=== PATIENT | female | born 2005 | race Two or more races ===

== ENCOUNTER → 2024-07-20 | Outpatient (CLI) | payer MEDICAID, SELFPAY ==
--- NOTE | 2024-07-20 13:28 | XR_ITS ---
Examination: Foot, right, 3 views Technique: AP, oblique, lateral views foot, 3 views Date and time of exam: July 20, 2024 1339 hours INDICATIONS: Patient fell last week with injury to the foot, foot pain FINDINGS: Adequate bone density. No acute fracture No dislocation No foreign body IMPRESSION: No acute fracture
--- NOTE | 2024-07-20 13:28 | XR_ITS ---
EXAMINATION: Ankle, right 3 views . Technique: Ankle AP, oblique, lateral 3 views Date and time of exam: July 20, 2024 at 1339 hours INDICATIONS: Patient fell last week with injury to the ankle, ankle pain. FINDINGS: No ankle fracture or dislocation No opaque foreign body IMPRESSION: No ankle fracture or dislocation
== END | disposition home or self-care (01) ==
PROVIDERS: PCP Family Medicine; Referring Provider Obstetrics & Gynecology; Visit Provider Obstetrics & Gynecology
DX: S99.911A Unspecified injury of right ankle, initial encounter (principal); S99.921A Unspecified injury of right foot, initial encounter; W19.XXXA Unspecified fall, initial encounter
CPT/HCPCS: 73610; 73630

== ENCOUNTER 2024-08-11 17:14 | Emergency (ER) | payer MEDICAID, SELFPAY ==
[2024-08-11 17:15] VITALS: BMI 38.9
[2024-08-11 17:37] VITALS: BP 125/83; PULSE 79; RESP 18; TEMP 37; O2SAT 97
--- NOTE | 2024-08-11 17:44 | PD.EDRME ---
Rapid Medical Screening Exam RME Arrival date/time: 08/11/24 17:14 19-year-old female with no known medical history presents to the emergency room with a chief complaint of bilateral pelvic pain and back pain that began after a fall that occurred today. Patient states she is currently and states her last menstrual period was June 30, 2023. I have greeted and performed a focused initial assessment of this patient. A comprehensive ED assessment and evaluation of the patient, analysis of all test results, and completion of the medical decision making process will be conducted by additional ED providers. Chief Complaint: Back Pain/Injury Vital signs: Vital Signs Temperature 98.6 F 08/11/24 17:37 Pulse Rate 79 08/11/24 17:37 Respiratory Rate 18 08/11/24 17:37 Blood Pressure 125/83 08/11/24 17:37 Pulse Oximetry (%) 97 08/11/24 17:37 Oxygen Delivery Method Room Air 08/11/24 17:37 Vital signs reviewed by provider: Yes
[2024-08-11 18:18] LABS: Basophils % (Auto) 0 % (0-2.5); Eosinophils # (Auto) 0.1 Thou/mm3 (0.0-0.5); Eosinophils % (Auto) 2 % (0-10); Hematocrit 37.7 % (36.0-46.0); Immature Granulocytes % (Auto) 1 % (0-0); Immature Granulocytes Auto 0.03 Thou/mm3 (0.00-0.00); Lymphocytes % (Auto) 34 % (10-50); Mean Corpuscular HGB Conc 34.5 g/dl (31.0-37.0); Mean Corpuscular Hemoglobin 30.1 pg (25.0-35.0); Mean Corpuscular Volume 87 fL (80-100); Monocytes # (Auto) 0.4 Thou/mm3 (0.0-0.8); Monocytes % (Auto) 7 % (0-12); Neutrophils # (Auto) 3.3 Thou/mm3 (1.8-7.7); Neutrophils % (Auto) 57 % (37-80); Nucleated Red Blood Cell % 0 /100 WBC (0); Platelet Count 218 Thou/mm3 (140-440); RDW Standard Deviation 42.4 fL (36.4-46.3); Red Blood Count 4.32 Miln/mm3 (4.00-5.20); White Blood Count 5.9 Thou/mm3 (3.6-11.0)
--- NOTE | 2024-08-11 18:26 | XR_ITS ---
Examination: OB Transvaginal ultrasound of the pelvis, complete Technique: Transvaginal sonographic images pelvis performed using uli scale imaging Exam date and time: August 11, 20242025 hrs. Indications: Patient fell today with pelvic pain Findings: Uterus 8.5 x 4.3 x 5.8 cm Intrauterine gestational sac 0.4 cm corresponds to 5 weeks 1 day gestational age No pole or cardiac activity Right ovary 3.8 cm arterial flow 23 mm cyst Left ovary obscured by bowel gas Impression: Early intrauterine gestational sac No pole or cardiac activity Recommend short-term follow-up transvaginal pelvic sonography to confirm viability.
--- NOTE | 2024-08-11 18:26 | PD.EDBACK ---
ED Back Injury Pain RME/HPI General Chief Complaint: Back Pain/Injury Stated Complaint: LOWER BACK PAIN S/P FALL (+) Time Seen by Provider: 08/11/24 18:20 Arrival date/time: 08/11/24 17:14 19F at approximately 2-6 weeks and with no significant PMH presents to ED with lower back/hip/pelvic pain and trip and fall while walking backwards today. Patient denies hitting her head and vaginal bleeding. Limitations: no limitations RME / HPI RME / HPI Narrative: 08/11/24 17:14 19-year-old female with no known medical history presents to the emergency room with a chief complaint of bilateral pelvic pain and back pain that began after a fall that occurred today. Patient states she is currently and states her last menstrual period was June 30, 2023. I have greeted and performed a focused initial assessment of this patient. A comprehensive ED assessment and evaluation of the patient, analysis of all test results, and completion of the medical decision making process will be conducted by additional ED providers. Related Data Previous Rx's ?Medication ?Instructions ?Recorded cyclobenzaprine 5 mg tablet 5 mg PO Q8H #14 tabs 08/26/23 ibuprofen 800 mg tablet (IBU) 800 mg PO Q8H #20 tabs 08/26/23 ondansetron HCl 4 mg tablet 4 mg PO Q8H PRN nausea and 08/26/23 vomiting #7 tabs Allergies Allergy/AdvReac Type Severity Reaction Status Date / Time No Known Allergies Allergy Verified 08/26/23 12:26 Review of Systems Review of Systems Systems Reviewed: All systems reviewed, normal except as documented Constitutional Constitutional: Reports system reviewed and no additional complaints, except as documented, Denies fever(s) and Denies headache(s) ENT Ears, Nose, Mouth, and Throat: Denies disequilibrium and Denies headache(s) Cardiovascular Cardiovascular: Reports system reviewed and no additional complaints, except as documented, Denies chest pain and Denies dyspnea Respiratory Respiratory: Reports system reviewed and no additional complaints, except as documented, Denies cough and Denies dyspnea Gastrointestinal Gastrointestinal: Reports system reviewed and no additional complaints, except as documented, Denies abdominal pain, Denies nausea and Denies vomiting Musculoskeletal Musculoskeletal: Reports as per HPI and Reports back pain Neurologic Neurologic: Reports system reviewed and no additional complaints, except as documented, Denies confusion, Denies disequilibrium and Denies headache(s) Psychiatric Psychiatric: Denies confusion Past Medical History Social History SMOKING STATUS: Never smoker ED Exam General Limitations: Present no limitations General appearance: Present alert and in no apparent distress Head Head exam: Present atraumatic Eye Eye exam: Present normal appearance, PERRL and EOMI ENT ENT exam: Present normal exam, normal oropharynx and mucous membranes moist Neck Neck exam: Present normal inspection, full ROM and trachea midline Chest Chest inspection: Present normal inspection and symmetric chest wall rise Respiratory Respiratory exam: Present normal lung sounds bilaterally Cardiovascular Cardiovascular exam: Present regular rate, normal rhythm and normal heart sounds Abdominal Exam Abdominal exam: Present soft and normal bowel sounds Extremities Exam Extremities exam: Present normal inspection and full ROM Back Exam Back exam: Present normal inspection and full ROM Neurological Exam Neurological exam: Present alert, oriented X3 and CN II-XII intact Psychiatric Psychiatric exam: Present normal affect and normal mood Skin Skin exam: Present warm, dry, intact and normal color Course Quality Measures none Orders Category Date Time Status US OB transvaginal Stat Exams 08/11/24 18:26 Completed ABO/RH Type Stat Lab 08/11/24 18:00 Completed Beta HCG,Quantitative Stat Lab 08/11/24 18:00 Completed CBC Stat Lab 08/11/24 18:00 Completed CMP [Comprehensive Metabolic Panel] Stat Lab 08/11/24 18:00 Completed UA [Urinalysis] Stat Lab 08/11/24 19:40 Completed Vital Signs Vital signs: Vital Signs Temperature 98.6 F 08/11/24 17:37 Pulse Rate 79 08/11/24 17:37 Respiratory Rate 18 08/11/24 17:37 Blood Pressure 125/83 08/11/24 17:37 Pulse Oximetry (%) 97 08/11/24 17:37 Oxygen Delivery Method Room Air 08/11/24 17:37 O2 at 97% on RA and WNLs Back Pain / Injury MDM Narrative MDM Narrative:: 19F at approximately 2-6 weeks and with no significant PMH presents to ED with lower back/hip/pelvic pain and trip and fall while walking backwards today. Patient denies hitting her head and vaginal bleeding. Physical exam reveals no pelvic back tenderness. ROM intact. Gait normal. Patient is afebrile, calm, and alert. US IUP but no FHR, possibly due to early gestation. Beta HCG WNLs. Licensed Pharmacist given. Patient data External records reviewed:: [facility] previous records Clinical information provided by:: patient Social determinants that could affect healthcare access:: none Patient has the following chronic illnesses:: none How is presenting disease/condition affected by chronic disease/condition?: no chronic disease Evaluation data The following diagnostics were reviewed and interpreted by me:: lab results and radiology exam(s) Lab and/or radiology exams considered but not ordered:: ordered Interpretation Summary: above Medications / Prescriptions Medications or Prescriptions considered but not ordered:: not ordered Medication administrations:: n/a Consultations Consultation(s) initiated? (list below): No Diagnosis Differential diagnosis back pain/injury: lumbar radiculopathy, sciatica, strain of lumbar region, renal colic, pyelonephritis, thoracic back pain, AAA, discitis and other (pelvic pain, back contusion, miscarriage, ) Most likely diagnosis given after review of the tests above:: currently Admission Indicated Admission indicated?: not indicated Admission Request Was there a request for admission?: No Disposition Plan Disposition Plan: Discharge Discharge Attestation Discharge Attestation: The patient and all family members were given an opportunity to ask questions and understood the discharge instructions. Discharge instructions specifically effects, indications for sooner follow up or return to the emergency department, and the expected course of current diagnosis. Patient condition: Stable Discharge Plan Plan Patient Disposition: HOME (Self Care) Disposition Comment: Stable Prescriptions/Referrals Prescriptions/Med Rec: No Action ondansetron HCl 4 mg tablet 4 mg PO Q8H PRN (Reason: nausea and vomiting) Qty: 7 0RF ibuprofen [IBU] 800 mg tablet 800 mg PO Q8H Qty: 20 0RF cyclobenzaprine 5 mg tablet 5 mg PO Q8H Qty: 14 0RF Referrals: Clarissa Sams PA-C [Primary Care Provider] - In 1 week Problem List Clinical Impression: Currently Patient/Caregiver Discharge Instructions Additional Instructions: Please follow-up with PCP/OBGYN within 24-48 hours and return immediately if symptoms worsen. Can repeat HCG in 48-72 hours to see trend. Print Language: Australian Stand Alone Forms: Work/School Release, Patient Portal Info Letter ANNY Supervising Physician ANNY Supervising Physician: Dr. Rivera
[2024-08-11 18:47] LABS: Alanine Aminotransferase 14 U/L (10-49); Albumin, Serum 4.6 gm/dL (3.5-5.0); Albumin/Globulin Ratio 1.6 (1.2-2.2); Alkaline Phosphatase 75 U/L (46-116); Anion Gap 7 (7-16); Aspartate Amino Transferase 20 U/L (0-34); BUN/Creatinine Ratio 13 Ratio (12-20); Bilirubin,Total 0.3 mg/dL (0.3-1.2); Blood Urea Nitrogen 9 mg/dL (9-23); Calcium 9.5 mg/dL (8.3-10.6); Calcium (Corrected) 9.5 mg/dL (8.5-10.1); Carbon Dioxide 25.7 mMol/L (20.0-31.0); Chloride 107 mMol/L (98-107); Creatinine (Component) 0.7 mg/dL (0.6-1.3); Estimated Creatinine Clearance 143.2 mL/min (>60); Globulin 2.8 gm/dL (2.3-3.5); Glucose 88 mg/dL (74-106); Osmolality,Calculated 277 (275-295); Potassium 3.9 mMol/L (3.4-5.1); Sodium 140 mMol/L (136-145); Total Protein 7.4 gm/dL (5.7-8.2); eGFR > 60 See Note
[2024-08-11 18:57] LABS: Beta HCG,Quantitative 1179 mIU/mL (<5.0)
[2024-08-11 19:48] LABS: Collection Type, Urine Clean Catch
[2024-08-11 19:58] LABS: Bilirubin,Urine Negative (Negative); Blood,Urine Negative (Negative); Clarity,Urine Clear (Clear/Hazy); Color,Urine Colorless (Lt Yel-Yel); Glucose, Urine Negative (Negative); Ketones,Urine 1+ (Negative); Leukocyte Esterase,Urine Negative (Negative); Nitrite,Urine Negative (Negative); PH,Urine 6.5 (5.0-7.0); Protein,Urine Negative (Neg - Trace); RBC,Urine 1 /hpf (0-3); Specific Gravity,Urine 1.005 (1.001-1.035); Squamous Epithelial Cell,Urine < 1 /hpf (0-5); Urobilinogen,Urine Negative mg/dL (0.0-1.0); WBC,Urine 1 /hpf (0-5)
== END 2024-08-11 23:23 | disposition home or self-care (01) ==
PROVIDERS: Nurse Practitioner Family; Emergency Provider Emergency Medicine; PCP Specialist
DX: O9A.211 Injury, poisoning and certain other consequences of external causes complicating pregnancy, first trimester (principal); S39.93XA Unspecified injury of pelvis, initial encounter; O21.9 Vomiting of pregnancy, unspecified; W01.0XXA Fall on same level from slipping, tripping and stumbling without subsequent striking against object, initial encounter; Y93.01 Activity, walking, marching and hiking; Z3A.01 Less than 8 weeks gestation of pregnancy
CPT/HCPCS: 36415; 76817; 80053; 81001; 84702; 85025; 86900; 86901; 99284

== ENCOUNTER 2025-02-02 09:33 | Outpatient (AMB) | payer MEDICAID, SELFPAY ==
[2025-02-02 09:46] VITALS: BP 119/77; PULSE 96; RESP 17; TEMP 36.3; O2SAT 96; BMI 40.1
--- NOTE | 2025-02-02 09:46 | AMB.OBINITIA ---
Vital Signs 02/02/25 09:46 Height 1.6 m Height Method Stated Weight 102.682 kg Weight Measurement Method Standing Scale BMI 40.1 BP 119/77 Blood Pressure Source Automatic Cuff Blood Pressure Location Right Upper Arm Position Sitting Respiration 17 Pulse 96 Pulse Source Monitor Temp 97.4 F Temp Source Temporal Artery Scan Pulse Oximetry (%) 96 Oxygen Delivery Method Room Air Allergies/Home Meds Allergies & Medications Allergies No Known Allergies Allergy (Verified 02/02/25 09:47) Medication Reconciliation aspirin 81 mg tablet,delayed release (Adult Aspirin Regimen) 81 mg PO QDAY #60 tabs 02/02/25 [Rx] Intake Visit Data Collection New Patient or Established: Established Patient (seen at [facility] within 3 years) Reason for Visit:: OBI Seen by Clinical Staff ONLY (RN/MA): No Marketing Performance Analyst Required: No Do You Feel Safe at Home: Yes Authorities Contacted: N/A PCP or OBGYN visit in last 3 months: No Hx Now: Yes Are you currently on any form of Control: No Pain Present Currently: No Pain Scale Used: [place]rales-Farley/Numerical Pain scale:: 0 Smoking Status Smoking Status: Never smoker Questionnaires Covid-19 Vaccine Questionnaire Has patient been vacinated for Covid-19 Have you been vacinated for Covid-19: Yes PHQ-9 PHQ-2 Over the last 2 weeks, how often have you been bothered by any of the following problems? 1. Little interest or pleasure in doing things: not at all 2. Feeling down, depressed, or hopeless: not at all Total score: 0 PHQ-9 3. Trouble falling or staying asleep, or sleeping too much: Not at all 4. Feeling tired or having little energy: Not at all 5. Poor appetite or overeating: Not at all 6. Feeling bad about yourself - or that you are a failure or have let yourself or your family down: Not at all 7. Trouble concentrating on things, such as reading the newspaper or watching television: Not at all 8. Moving or speaking so slowly that other people could have noticed? - Or the opposite - being so fidgety or restless that you have been moving around a lot more than usual: not at all 9. Thoughts that you would be better off or of hurting yourself in some way: Not at all Total score: 0 If you checked off any problems, how difficult have these problems made it for you to do your work, take care of things at home, or get along with other people?: not difficult at all Source: Developed by Drs. Jasiel Leon, Solange Wade, Jonnie Manzo and colleagues, with an educational laura from [employer]. Depression screen completed yes Social History Living Situation History Marital Status: Lives With: Family Housing: House Tobacco History Smoking Status: Never smoker Domestic Abuse History Do You Feel Safe at Home: Yes History of Present Illness HPI Narrative 19-year-old 1 para 0 for OBI. Patient transferred from [facility] with records. Patient's last. June 29, 2024. This is [facility] 04/05/2025. Patient then had her first ultrasound September 06. Patient was 8 weeks and this tends EDC to April 17, 2025. Patient denies social habits. Denies surgery. Denies chronic illness. History of obesity with the . Patient denies leaking. Denies bleeding. Denies contractions. Reports good movement. Her H&H was 13 and 41. Platelets were 215. A+, antibody screen negative, RPR nonreactive, rubella immune, hepatitis B negative, hep C negative, HIV negative, GC and chlamydia was negative. AFP, NIPT and carrier screens all negative. Patient had a normal 1 hour GTT. And her third trimester RPR was negative. A1c 5.3. Reports no concerns at this time OB Initial Visit OB Flowsheet OB Flowsheet Initial Weight: Not Recorded Date <del>?</del> EGA Weight BP Alb Glu CTX Pres Fundal ht FHR Mov Dilation Station Effacement Hx Notes Visit Note 02/02/25 <del>?</del> 29w 3d 102.682 kg 119/77 absent unknown 31 147 active 19-year-old 1 para 0 for OBI. Happy about the . Patient is a transfer from [facility]. With records. History of obesity with the no other problems. Reports movement. Denies leaking. Denies bleeding. Patient will call [facility] for her last ultrasound was done 2 weeks ago. Referred to Dr. Castellano for dating sono and obesity. Discussed labor precautions. Increase fluids. Continue vitamins. Start on low-dose baby aspirin. Return in 2 weeks OB check Menstrual History Menstrual reliability: definite Flow: normal Menstrual regularity: regular Monthly: Yes Age at menarche: 7 On control pills at conception: No OB History : 1 Infection History & Risk Evaluation History of STDs: none HIV risk evaluation: low risk Hepatitis B risk evaluation: low risk Patient or partner has history of Genital Herpes: No Varicella/chicken pox status: unknown Genetic Screening & History Genetic Screening/Teratology Counseling - Includes patient, baby's father, or anyone in either family with: 1. Patient's age 35 years or older as of estimated date of delivery: No 2. Thalassemia (Bruneian, Nigerian, Mediterranean, or Background); MCV less than 80: No 3. Neural Tube Defect (Meningomyelocele, Spina Bifida, or Anencephaly): No 4. Congenital Heart Defect: No 5. Down Syndrome: No 6. Kye-Sachs (Ashkenazi Restorationist, Cajun, Libyan Clay): No 7. Adrianne Disease (Ashkenazi Restorationist): No 8. Familial Dysautonomia (Ashkenazi Restorationist): No 9. Sickle Cell Disease or Trait (): No 10. Hemophilia or other blood disorders: No 11. Muscular Dystrophy: No 12. Cystic Fibrosis: No 13. [place]'s Chorea: No 14. Mental Retardation/Autism: No 15. Other inherited genetic or chromosomal disorder: No 16. Maternal Metabolic Disorder (EG,TYPE 1 Diabetes, PKU): No 17. Patient or baby's father had a child with defects not listed above: No 18. Recurrent loss or a stillbirth: No 19. Medications (including supplements, vitamins, herbs or otc drugs)/illicit/recreational drugs/alcohol since last menstrual period: No 20. Any other: No Infection History 1. Live with someone with TB or exposed to TB: No 2. Rash or viral illness since last menstrual period: No 3. Hepatitis B,C: No Other (see comments) Source: [employer] Review of Systems Review of Systems Systems Reviewed: All systems reviewed, normal except as documented Exam General Limitations: no limitations General Appearance: alert, in no apparent distress, comfortable, cooperative, healthy appearing, well developed and well groomed Head Head exam: atraumatic, normocephalic and normal inspection ENT ENT exam: Present normal exam, normal oropharynx and mucous membranes moist Resp Respiratory exam: Present normal lung sounds bilaterally Card Cardiovascular exam: Present regular rate, normal rhythm and normal heart sounds Abdominal Abdominal exam: Present soft and normal bowel sounds Psych Psychiatric exam: Present normal affect and normal mood Office Procedures OB Clinic LOC & Office Proc's Nursing/Assessment Patient Status: Established Patient OB Clinic Nursing Assessment: Medication Reconciliation, Update PMH in EMR and Vital Signs OB Clinic Coordination of Care: Complex Care and Chronic Disease 1-5, Consent,records obtained, informed consent, Education Simp Pt/Fam, Lab and Imaging orders and Staff clarify orders Special Needs: Heart tones Established Patient Charge Established Patient Point Assignment: 130 Established Patient Point Charge: EP Level 4 (120-155) Assessment & Plan Diagnosis / Problem List (1) Obesity affecting , antepartum: Status: Acute (2) Encounter for supervision of high risk in third trimester, antepartum: Status: Acute Plan Schedule for growth scan with Dr. Castellano. Discussed labor precautions. I discussed dates. Discussed diet and weight gain. Walk 40 minutes a day. Patient will try to get her last ultrasound that was done 2 weeks ago at [facility]. Return in 2 weeks at which Additional Plan Follow Up: 2 Weeks (obc)
== END 2025-02-02 10:47 | disposition home or self-care (01) ==
LOC: HODSOBC 09:33
PROVIDERS: Supervising Provider Advanced Practice Midwife; Visit Provider Advanced Practice Midwife
DX: O09.893 Supervision of other high risk pregnancies, third trimester (principal); O99.213 Obesity complicating pregnancy, third trimester; Z3A.29 29 weeks gestation of pregnancy
CPT/HCPCS: 99214; G0463

== ENCOUNTER 2025-02-16 08:46 | Outpatient (AMB) | payer MEDICAID, SELFPAY ==
[2025-02-16 08:54] VITALS: BP 109/73; PULSE 96; RESP 17; TEMP 36.3; O2SAT 96; BMI 40.6
--- NOTE | 2025-02-16 08:54 | AMB.OBVISIT ---
Vital Signs 02/16/25 08:54 Height 1.6 m Height Method Measured Weight 103.873 kg Weight Measurement Method Standing Scale BMI 40.6 BP 109/73 Blood Pressure Source Automatic Cuff Blood Pressure Location Right Upper Arm Position Sitting Respiration 17 Pulse 96 Pulse Source Monitor Temp 97.4 F Temp Source Temporal Artery Scan Pulse Oximetry (%) 96 Oxygen Delivery Method Room Air Allergies/Home Meds Allergies & Medications Allergies No Known Allergies Allergy (Verified 02/16/25 08:55) Medication Reconciliation aspirin 81 mg tablet,delayed release (Adult Aspirin Regimen) 81 mg PO QDAY #60 tabs 02/02/25 [Rx Confirmed 02/16/25] Intake Visit Data Collection New Patient or Established: Established Patient (seen at [facility] within 3 years) Reason for Visit:: OBC Consent obtained for Telemed Visit: No Seen by Clinical Staff ONLY (RN/MA): No Spar Machine Operator Helper Required: No Do You Feel Safe at Home: Yes Authorities Contacted: N/A PCP or OBGYN visit in last 3 months: Yes Date of Last PCP or OBGYN visit: 02/02/25 Hx Now: Yes Are you currently on any form of Control: No Pain Present Currently: No Pain Scale Used: Corrales-Farley/Numerical Pain scale:: 0 Smoking Status Smoking Status: Never smoker Questionnaires Covid-19 Vaccine Questionnaire Has patient been vacinated for Covid-19 Have you been vacinated for Covid-19: Yes PHQ-9 PHQ-2 Over the last 2 weeks, how often have you been bothered by any of the following problems? 1. Little interest or pleasure in doing things: not at all PHQ-9 8. Moving or speaking so slowly that other people could have noticed? - Or the opposite - being so fidgety or restless that you have been moving around a lot more than usual: not at all Source: Developed by Drs. Jasiel Leon, Solange Wade, Jonnie Manzo and colleagues, with an educational laura from [employer]. Social History Living Situation History Lives With: Family Housing: House Tobacco History Smoking Status: Never smoker Domestic Abuse History Do You Feel Safe at Home: Yes Care OB Visit Log OB Flowsheet Initial Weight: Not Recorded Date <del>?</del> EGA Weight BP Alb Glu CTX Pres Fundal ht FHR Mov Dilation Station Effacement Hx Notes Visit Note 02/02/25 <del>?</del> 29w 3d 102.682 kg 119/77 absent unknown 31 147 active 19-year-old 1 para 0 for OBI. Happy about the . Patient is a transfer from [facility]. With records. History of obesity with the no other problems. Reports movement. Denies leaking. Denies bleeding. Patient will call [facility] for her last ultrasound was done 2 weeks ago. Referred to Dr. Castellano for dating sono and obesity. Discussed labor precautions. Increase fluids. Continue vitamins. Start on low-dose baby aspirin. Return in 2 weeks OB check 02/16/25 <del>?</del> 31w 3d 103.873 kg 109/73 absent unknown 31 145 active No OB complaints. Doing well. Fetus is active. Denies leaking, bleeding, contractions. Maternal- medicine ultrasound is pending. Discussed labor precautions. Increase fluids. Kick count twice a day. Return in 2 weeks OB check. I discussed Tdap. Patient declined for today ATUL Calculator Estimated Delivery Date Method Current WG Current Estimate 04/17/25 Ultrasound #1 31w 3d Other Estimates 04/05/25 LMP (Certain) 33w 1d Notes Visit Date: 02/02/25 Last Updated by: Isatu Dia, BHARATHI 19 yo g1po. lmp 06/29/24. EDC 04/05/25. 1st ob sono: 09/06/24. IUP:8w1, CEDC: 04/17/25. A+,abs-, rpr;;nr, rub imm, hbsag-, hiv-, HC-, GC/CT-, UA-, UT-, 1 gr ftt: 86, A1c: 5.3, NIPT/AFP/Carrier- Office Procedures OB Clinic LOC & Office Proc's Nursing/Assessment Patient Status: Established Patient OB Clinic Nursing Assessment: Medication Reconciliation, Update PMH in EMR and Vital Signs OB Clinic Coordination of Care: Complex Care and Chronic Disease 1-5, Education Complex Pt/Fam and Consent,records obtained, informed consent Special Needs: Heart tones Established Patient Charge Established Patient Point Assignment: 110 Established Patient Point Charge: EP Level 3 (80-115) Assessment & Plan Diagnosis / Problem List (1) Encounter for supervision of high risk in third trimester, antepartum: Status: Acute Plan Discussed Tdap. Patient declined. Discussed labor precautions. Kick count twice a day. Increase fluids. Continue prenatals. Return in 2 weeks OB check Additional Plan Follow Up: 2 Weeks (obc)
== END 2025-02-16 09:15 | disposition home or self-care (01) ==
LOC: HODSOBC 08:46
PROVIDERS: Supervising Provider Advanced Practice Midwife; Visit Provider Advanced Practice Midwife
DX: O09.93 Supervision of high risk pregnancy, unspecified, third trimester (principal); Z3A.31 31 weeks gestation of pregnancy; Z28.21 Immunization not carried out because of patient refusal
CPT/HCPCS: 99213; G0463

== ENCOUNTER 2025-02-27 08:29 | Outpatient (AMB) | payer MEDICAID, SELFPAY ==
[2025-02-27 08:33] VITALS: BP 118/78; PULSE 109; RESP 16; TEMP 36.8; O2SAT 98; BMI 40.4
--- NOTE | 2025-02-27 08:33 | AMB.OBVISIT ---
Vital Signs 02/27/25 08:33 Height 1.6 m Height Method Stated Weight 103.646 kg Weight Measurement Method Standing Scale BMI 40.4 BP 118/78 Blood Pressure Source Automatic Cuff Blood Pressure Location Left Lower Arm Position Sitting Respiration 16 Pulse 109 H Pulse Source Monitor Temp 98.2 F Temp Source Oral Pulse Oximetry (%) 98 Oxygen Delivery Method Room Air Allergies/Home Meds Allergies & Medications Allergies No Known Allergies Allergy (Verified 02/27/25 08:33) Medication Reconciliation aspirin 81 mg tablet,delayed release (Adult Aspirin Regimen) 81 mg PO QDAY #60 tabs 02/02/25 [Rx Confirmed 02/27/25] Intake Visit Data Collection New Patient or Established: Established Patient (seen at [facility] within 3 years) Reason for Visit:: OBC Seen by Clinical Staff ONLY (RN/MA): No Heating And Ventilating Worker Required: No Do You Feel Safe at Home: Yes Authorities Contacted: N/A PCP or OBGYN visit in last 3 months: Yes Date of Last PCP or OBGYN visit: 02/16/25 Hx Now: Yes Are you currently on any form of Control: No Pain Present Currently: No Pain Scale Used: Corrales-Farley/Numerical Pain scale:: 0 Smoking Status Smoking Status: Never smoker Questionnaires Covid-19 Vaccine Questionnaire Has patient been vacinated for Covid-19 Have you been vacinated for Covid-19: Yes PHQ-9 PHQ-2 Over the last 2 weeks, how often have you been bothered by any of the following problems? 1. Little interest or pleasure in doing things: not at all 2. Feeling down, depressed, or hopeless: not at all Total score: 0 PHQ-9 3. Trouble falling or staying asleep, or sleeping too much: Not at all 4. Feeling tired or having little energy: Not at all 5. Poor appetite or overeating: Not at all 6. Feeling bad about yourself - or that you are a failure or have let yourself or your family down: Not at all 7. Trouble concentrating on things, such as reading the newspaper or watching television: Not at all 8. Moving or speaking so slowly that other people could have noticed? - Or the opposite - being so fidgety or restless that you have been moving around a lot more than usual: not at all 9. Thoughts that you would be better off or of hurting yourself in some way: Not at all Total score: 0 If you checked off any problems, how difficult have these problems made it for you to do your work, take care of things at home, or get along with other people?: not difficult at all Source: Developed by Drs. Jasiel Leon, Solange Wade, Jonnie Manzo and colleagues, with an educational laura from [employer]. Depression screen completed yes Social History Living Situation History Lives With: Family Housing: House Tobacco History Smoking Status: Never smoker Second Hand Smoke Exposure: No Domestic Abuse History Do You Feel Safe at Home: Yes Care OB Visit Log OB Flowsheet Initial Weight: Not Recorded Date <del>?</del> EGA Weight BP Alb Glu CTX Pres Fundal ht FHR Mov Dilation Station Effacement Hx Notes Visit Note 02/02/25 <del>?</del> 29w 3d 102.682 kg 119/77 absent unknown 31 147 active 19-year-old 1 para 0 for OBI. Happy about the . Patient is a transfer from [facility]. With records. History of obesity with the no other problems. Reports movement. Denies leaking. Denies bleeding. Patient will call [facility] for her last ultrasound was done 2 weeks ago. Referred to Dr. Castellano for dating sono and obesity. Discussed labor precautions. Increase fluids. Continue vitamins. Start on low-dose baby aspirin. Return in 2 weeks OB check 02/16/25 <del>?</del> 31w 3d 103.873 kg 109/73 absent unknown 31 145 active No OB complaints. Doing well. Fetus is active. Denies leaking, bleeding, contractions. Maternal- medicine ultrasound is pending. Discussed labor precautions. Increase fluids. Kick count twice a day. Return in 2 weeks OB check. I discussed Tdap. Patient declined for today 02/27/25 <del>?</del> 33w 0d 103.646 kg 118/78 absent cephalic 32 146 active Complains of increased mucus. Denies cough and runny nose. No temperature. Reports increased cramps. Fetus is active. No leaking or no bleeding. Comfort measures for URI. Discussed danger signs symptoms and ER precautions with parameters. Tylenol and zost-hkw-hlwojbo meds for help. Vicks is okay. Kick count twice a day. Increase fluids. Return in 2 weeks OB check. Patient has maternal- medicine sono March 08 ATUL Calculator Estimated Delivery Date Method Current WG Current Estimate 04/17/25 Ultrasound #1 33w 0d Other Estimates 04/05/25 LMP (Certain) 34w 5d Notes Visit Date: 02/02/25 Last Updated by: Isatu Dia, [facility] 19 yo g1po. lmp 06/29/24. EDC 04/05/25. 1st ob sono: 09/06/24. IUP:8w1, CEDC: 04/17/25. A+,abs-, rpr;;nr, rub imm, hbsag-, hiv-, HC-, GC/CT-, UA-, UT-, 1 gr ftt: 86, A1c: 5.3, NIPT/AFP/Carrier- Office Procedures OB Clinic LOC & Office Proc's Nursing/Assessment Patient Status: Established Patient OB Clinic Nursing Assessment: Medication Reconciliation, Update PMH in EMR and Vital Signs OB Clinic Coordination of Care: Consent,records obtained, informed consent, Education Simp Pt/Fam, Lab and Imaging orders and Staff clarify orders Special Needs: Heart tones Established Patient Charge Established Patient Point Assignment: 105 Established Patient Point Charge: EP Level 3 (80-115) Assessment & Plan Diagnosis / Problem List (1) Encounter for supervision of high risk in third trimester, antepartum: Status: Acute Plan labor precautions. Kick counts twice a day. Increase fluids. Comfort measures and gmze-trj-[id number] meds for URI. Keep appointment with [facility] March 08. Return in 2 weeks OB check Additional Plan Follow Up: 2 Weeks (obc)
== END 2025-02-27 09:43 | disposition home or self-care (01) ==
LOC: HODSOBC 08:29
PROVIDERS: Supervising Provider Advanced Practice Midwife; Visit Provider Advanced Practice Midwife
DX: O09.893 Supervision of other high risk pregnancies, third trimester (principal); O99.513 Diseases of the respiratory system complicating pregnancy, third trimester; J06.9 Acute upper respiratory infection, unspecified; Z3A.33 33 weeks gestation of pregnancy
CPT/HCPCS: 99213; G0463

== ENCOUNTER 2025-03-13 10:26 | Outpatient (AMB) | payer MEDICAID, SELFPAY ==
[2025-03-13 10:33] VITALS: BP 118/71; PULSE 101; RESP 16; TEMP 36.2; O2SAT 98; BMI 41.4
--- NOTE | 2025-03-13 10:33 | AMB.OBVISIT ---
Vital Signs 03/13/25 10:33 Height 1.6 m Height Method Stated Weight 106.141 kg Weight Measurement Method Standing Scale BMI 41.4 BP 118/71 Blood Pressure Source Automatic Cuff Blood Pressure Location Left Upper Arm Position Sitting Respiration 16 Pulse 101 H Pulse Source Monitor Temp 97.2 F Temp Source Oral Pulse Oximetry (%) 98 Oxygen Delivery Method Room Air Allergies/Home Meds Allergies & Medications Allergies No Known Allergies Allergy (Verified 03/13/25 10:34) Medication Reconciliation aspirin 81 mg tablet,delayed release (Adult Aspirin Regimen) 81 mg PO QDAY #60 tabs 02/02/25 [Rx Confirmed 03/13/25] Intake Visit Data Collection New Patient or Established: Established Patient (seen at [facility] within 3 years) Reason for Visit:: OBC Seen by Clinical Staff ONLY (RN/MA): No Prom[employer] Ticket Sales Required: No Do You Feel Safe at Home: Yes Authorities Contacted: N/A PCP or OBGYN visit in last 3 months: Yes Date of Last PCP or OBGYN visit: 02/27/25 Hx Now: Yes Are you currently on any form of Control: No Pain Present Currently: No Pain Scale Used: Corrales-Farley/Numerical Pain scale:: 0 Smoking Status Smoking Status: Never smoker Questionnaires Covid-19 Vaccine Questionnaire Has patient been vacinated for Covid-19 Have you been vacinated for Covid-19: Yes PHQ-9 PHQ-2 Over the last 2 weeks, how often have you been bothered by any of the following problems? 1. Little interest or pleasure in doing things: not at all 2. Feeling down, depressed, or hopeless: not at all Total score: 0 PHQ-9 3. Trouble falling or staying asleep, or sleeping too much: Not at all 4. Feeling tired or having little energy: Not at all 5. Poor appetite or overeating: Not at all 6. Feeling bad about yourself - or that you are a failure or have let yourself or your family down: Not at all 7. Trouble concentrating on things, such as reading the newspaper or watching television: Not at all 8. Moving or speaking so slowly that other people could have noticed? - Or the opposite - being so fidgety or restless that you have been moving around a lot more than usual: not at all 9. Thoughts that you would be better off or of hurting yourself in some way: Not at all Total score: 0 If you checked off any problems, how difficult have these problems made it for you to do your work, take care of things at home, or get along with other people?: not difficult at all Source: Developed by Drs. Jasiel Leon, Solange Wade, Jonnie Manzo and colleagues, with an educational laura from [employer]. Depression screen completed yes Social History Living Situation History Marital Status: Single Lives With: Family Housing: House Tobacco History Smoking Status: Never smoker Second Hand Smoke Exposure: No Alcohol History Alcohol Intake: Never Domestic Abuse History Do You Feel Safe at Home: Yes Care OB Visit Log OB Flowsheet Initial Weight: Not Recorded Date <del>?</del> EGA Weight BP Alb Glu CTX Pres Fundal ht FHR Mov Dilation Station Effacement Hx Notes Visit Note 02/02/25 <del>?</del> 29w 3d 102.682 kg 119/77 absent unknown 31 147 active 19-year-old 1 para 0 for OBI. Happy about the . Patient is a transfer from [facility]. With records. History of obesity with the no other problems. Reports movement. Denies leaking. Denies bleeding. Patient will call [facility] for her last ultrasound was done 2 weeks ago. Referred to Dr. Castellano for dating sono and obesity. Discussed labor precautions. Increase fluids. Continue vitamins. Start on low-dose baby aspirin. Return in 2 weeks OB check 02/16/25 <del>?</del> 31w 3d 103.873 kg 109/73 absent unknown 31 145 active No OB complaints. Doing well. Fetus is active. Denies leaking, bleeding, contractions. Maternal- medicine ultrasound is pending. Discussed labor precautions. Increase fluids. Kick count twice a day. Return in 2 weeks OB check. I discussed Tdap. Patient declined for today 02/27/25 <del>?</del> 33w 0d 103.646 kg 118/78 absent cephalic 32 146 active Complains of increased mucus. Denies cough and runny nose. No temperature. Reports increased cramps. Fetus is active. No leaking or no bleeding. Comfort measures for URI. Discussed danger signs symptoms and ER precautions with parameters. Tylenol and atnm-eos-kstczsv meds for help. Vicks is okay. Kick count twice a day. Increase fluids. Return in 2 weeks OB check. Patient has maternal- medicine sono March 08 ATUL Calculator Estimated Delivery Date Method Current WG Current Estimate 04/17/25 Ultrasound #1 35w 0d Other Estimates 04/05/25 LMP (Certain) 36w 5d Notes Visit Date: 02/02/25 Last Updated by: Isatu Dia, CNM 19 yo g1po. lmp 06/29/24. EDC 04/05/25. 1st ob sono: 09/06/24. IUP:8w1, CEDC: 04/17/25. A+,abs-, rpr;;nr, rub imm, hbsag-, hiv-, HC-, GC/CT-, UA-, UT-, 1 gr ftt: 86, A1c: 5.3, NIPT/AFP/Carrier- Office Procedures OB Clinic LOC & Office Proc's Nursing/Assessment Patient Status: Established Patient OB Clinic Nursing Assessment: Medication Reconciliation, Update PMH in EMR and Vital Signs OB Clinic Coordination of Care: Education Complex Pt/Fam, Consent,records obtained, informed consent, Lab and Imaging orders, Results/Orders obtained and Staff clarify orders Special Needs: Heart tones Miscellaneous Interventions: Pelvic Comp w/OB cult Established Patient Charge Established Patient Point Assignment: 130 Established Patient Point Charge: EP Level 4 (120-155) Assessment & Plan Diagnosis / Problem List (1) Encounter for supervision of high risk in third trimester, antepartum: Status: Acute Plan GBS today. Discussed diet and weight gain. Decrease carbs. Discussed labor precautions and kick count twice a day. Increase fluids and return in a week OB check. Disability can start today
== END 2025-03-13 11:11 | disposition home or self-care (01) ==
LOC: HODSOBC 10:26
PROVIDERS: Supervising Provider Advanced Practice Midwife; Visit Provider Advanced Practice Midwife
DX: O09.93 Supervision of high risk pregnancy, unspecified, third trimester (principal); Z3A.33 33 weeks gestation of pregnancy; Z36.85 Encounter for antenatal screening for Streptococcus B
CPT/HCPCS: 99214; G0463

== ENCOUNTER 2025-03-14 17:58 | Observation (INO) | payer MEDICAID, SELFPAY ==
[2025-03-14] VITALS (23 sets, daily range): BP systolic 108–111; BP diastolic 72–76; PULSE 80–102; RESP 16–99; TEMP 36.4–36.9; O2SAT 90–100; BMI 41.4; BMI 41.0
--- NOTE | 2025-03-14 14:44 | XR_ITS ---
Examination: Complete OB ultrasound greater than 14 weeks Date and time of exam: March 14, 2025 1459 hours INDICATIONS: Right back and upper abdominal pain beginning 3 days ago Findings: Viable intrauterine single fetus with single amniotic sac presentation cephalic spine maternal left Cardiac motion 135 BPM Placenta posterior grade 1. Umbilical cord insertion 3 vessel seen. Amniotic fluid index 12.2 cm Ovaries obscured by bowel gas. Composite estimated gestational age based on BPD, head circumference, abdominal circumference, femur length is 35 weeks 4 days, estimated weight 2751 g. Survey of intracranial anatomy, spinal anatomy, abdominal anatomy, four-chamber heart performed with no abnormalities identified. Impression: Viable intrauterine gestation cephalic presentation.
--- NOTE | 2025-03-14 14:44 | XR_ITS ---
Examination: Abdomen sonogram, Limited Date and time of exam: March 14, 2025 1534 hours INDICATIONS: Right upper abdominal pain radiating to the back beginning 3 weeks ago Technique: Real-time lui scale transabdominal sonographic images of the upper abdomen obtained. Findings: Normal gallbladder. Normal common bile duct 0.2 cm Pancreatic head 3.2 cm Liver 17.2 cm smooth contour Normal hepatopedal portal venous oh Patent IVC IMPRESSION: Normal gallbladder Mild to moderate hepatomegaly no focal liver lesions
--- NOTE | 2025-03-14 14:45 | PD.EDRME ---
Rapid Medical Screening Exam RME Arrival date/time: 03/14/25 14:08 19-year-old female presents to the emergency department today stating she is approximately 35 weeks patient reports acid reflux as well as right upper back pain patient reports she was sent here by OB Dr. Petersen to rule out gallstones Chief Complaint: General Adult/Misc Complain Vital signs: Vital Signs Temperature 98.4 F 03/14/25 14:32 Pulse Rate 96 03/14/25 14:32 Respiratory Rate 16 03/14/25 14:32 Blood Pressure 108/76 03/14/25 14:32 Pulse Oximetry (%) 98 03/14/25 14:32 Oxygen Delivery Method Room Air 03/14/25 14:32
[2025-03-14 15:05] LABS: Basophils # (Auto) 0.0 Thou/mm3 (0.0-0.2); Basophils % (Auto) 0 % (0-2.5); Eosinophils # (Auto) 0.2 Thou/mm3 (0.0-0.5); Eosinophils % (Auto) 2 % (0-10); Hematocrit 36.9 % (36.0-46.0); Hemoglobin 12.4 g/dL (12.0-16.0); Immature Granulocytes Auto 0.13 Thou/mm3 (0.00-0.00); Lymphocytes # (Auto) 1.3 Thou/mm3 (1.0-4.8); Lymphocytes % (Auto) 16 % (10-50); Mean Corpuscular HGB Conc 33.6 g/dl (31.0-37.0); Mean Corpuscular Hemoglobin 30.5 pg (25.0-35.0); Mean Corpuscular Volume 91 fL (80-100); Monocytes # (Auto) 0.6 Thou/mm3 (0.0-0.8); Monocytes % (Auto) 8 % (0-12); Neutrophils # (Auto) 5.9 Thou/mm3 (1.8-7.7); Neutrophils % (Auto) 73 % (37-80); Nucleated Red Blood Cell # 0.00 Thou/mm3 (0.00-0.00); Nucleated Red Blood Cell % 0 /100 WBC (0); Platelet Count 186 Thou/mm3 (140-440); RDW Standard Deviation 45.0 fL (36.4-46.3); Red Blood Count 4.06 Miln/mm3 (4.00-5.20); White Blood Count 8.1 Thou/mm3 (3.6-11.0)
[2025-03-14 15:35] LABS: Alanine Aminotransferase 12 U/L (10-49); Albumin, Serum 3.8 gm/dL (3.5-5.0); Albumin/Globulin Ratio 1.8 (1.2-2.2); Alkaline Phosphatase 159 U/L (46-116); Anion Gap 8 (7-16); Aspartate Amino Transferase 20 U/L (0-34); BUN/Creatinine Ratio 13 Ratio (12-20); Bilirubin,Total 0.3 mg/dL (0.3-1.2); Blood Urea Nitrogen < 5 mg/dL (9-23); Calcium 9.1 mg/dL (8.3-10.6); Calcium (Corrected) 9.3 mg/dL (8.5-10.1); Carbon Dioxide 23.6 mMol/L (20.0-31.0); Chloride 105 mMol/L (98-107); Creatinine (Component) 0.4 mg/dL (0.6-1.3); Estimated Creatinine Clearance 259.5 mL/min (>60); Globulin 2.1 gm/dL (2.3-3.5); Glucose 73 mg/dL (74-106); Osmolality,Calculated 270 (275-295); Potassium 3.8 mMol/L (3.4-5.1); Sodium 137 mMol/L (136-145); Total Protein 5.9 gm/dL (5.7-8.2); eGFR > 60 See Note
[2025-03-14 15:57] LABS: Beta HCG,Quantitative 28925 mIU/mL (<5.0)
[2025-03-14 16:12] LABS: Collection Type, Urine Clean Catch
[2025-03-14 16:30] LABS: Bacteria,Urine Rare; Bilirubin,Urine Negative (Negative); Blood,Urine Negative (Negative); Color,Urine Lt-Yellow (Lt Yel-Yel); Glucose, Urine Negative (Negative); Ketones,Urine Negative (Negative); Leukocyte Esterase,Urine Positive (Negative); Nitrite,Urine Negative (Negative); PH,Urine 6.5 (5.0-7.0); Protein,Urine Negative (Neg - Trace); RBC,Urine 2 /hpf (0-3); Specific Gravity,Urine 1.008 (1.001-1.035); Squamous Epithelial Cell,Urine 4 /hpf (0-5); Urobilinogen,Urine Negative mg/dL (0.0-1.0); WBC,Urine 1 /hpf (0-5)
[2025-03-14 17:22] LABS: Clarity,Urine Hazy (Clear/Hazy)
--- NOTE | 2025-03-14 17:37 | PD.EDADULT ---
ED General RME/HPI General Chief complaint: General Adult/Misc Complain Stated complaint: R BACK PAIN, ACID REFLUX, 35 WEEKS PREG Time Seen by Provider: 03/14/25 16:42 Arrival date/time: 03/14/25 14:08 RME / HPI RME / HPI narrative: 19-year-old female presents to the emergency department today stating she is approximately 35 weeks patient reports acid reflux as well as right upper back pain patient reports she was sent here by OB Dr. Petersen to rule out gallstones. Patient denies any other complaints. No medication was taken prior to ER visit. No cough no fever no shortness of breath. Related Data Previous Rx's ?Medication ?Instructions ?Recorded aspirin 81 mg tablet,delayed 81 mg PO QDAY #60 tabs 02/02/25 release (Adult Aspirin Regimen) Allergies Allergy/AdvReac Type Severity Reaction Status Date / Time No Known Allergies Allergy Verified 03/13/25 10:34 Review of Systems Review of Systems Narrative Review of Systems: Review of system reviewed and within normal limits except mentioned in HPI ED Exam Narrative Physical exam: VITAL SIGNS: Reviewed. GENERAL APPEARANCE: Alert and interactive, follows commands, no acute distress, HEAD AND FACE: Non-traumatic. ENT: PERRL, pink conjunctivitis, eyelid no trauma, Mucous membrane moist. NECK: Supple, nontender, no nuchal rigidity. CHEST: Right upper chest tenderness more on the scapular area, no redness no masses palpated, no crepitus, no paradoxical movement, no retractions. LUNGS: Clear, well ventilated, symmetric, no rales, no wheezing, no ronchi, no stridor, good breath sounds bilaterally. HEART: Regular rate, regular rhythm, no murmur, no gallops. ABDOMEN: Soft, positive bowel sounds, gravid abdomen, no guarding, nontender, no rebound, no masses, RECTAL: Deferred. GENITAL: Deferred. NEUROLOGICAL: Gross motor function intact sensory function intact, Appropriate for age. MUSCULOSKELETAL: low back nontender, full range of motion. EXTREMITIES: Nontender, full range of motion. SKIN: Color pink, dry, no rash, no lacerations, no abrasions, no contusions. LYMPHATICS: Deferred. Course Quality Measures none Orders Category Date Time Status US OB >= 14 weeks Fetus Stat Exams 03/14/25 14:44 Completed US gall bladder Stat Exams 03/14/25 14:44 Completed ABO/RH Type Stat Lab 03/14/25 14:50 Completed Beta HCG,Quantitative Stat Lab 03/14/25 14:50 Completed CBC Stat Lab 03/14/25 14:50 Completed Comprehensive Metabolic Panel Stat Lab 03/14/25 14:50 Completed UA [Urinalysis] Stat Lab 03/14/25 16:02 Completed Vital Signs Vital signs: Vital Signs Temperature 98.4 F 03/14/25 14:32 Pulse Rate 96 03/14/25 14:32 Respiratory Rate 16 03/14/25 14:32 Blood Pressure 108/76 03/14/25 14:32 Pulse Oximetry (%) 98 03/14/25 14:32 Oxygen Delivery Method Room Air 03/14/25 14:32 Discharge Plan Plan Patient Disposition: HOME (Self Care) Discharge Disposition comment: Stable Prescriptions/Referrals Prescriptions/Med Rec: No Action aspirin [Adult Aspirin Regimen] 81 mg tablet,delayed release (DR/EC) 81 mg PO QDAY Qty: 60 1RF Referrals: No Primary/Family,Physician [Primary Care Provider] - In 1 week Problem List Clinical Impression: Muscle strain of right scapular region, , Abdominal cramping Patient/Caregiver Discharge Instructions Discharge Activity: activity as tolerated Education Materials: Treating?Strains and Sprains Additional Instructions: Thank you for the opportunity for serving you today. You are stable for discharged . You are advised to: Follow-up with your PCP in 1 to 2 days Return to ED for worsening of symptoms Increase oral fluids Take [id number] Tylenol as needed for pain, you can also apply warm compress as needed Print Language: Latvian Stand Alone Forms: Judi Award Info., Patient Portal Info Letter PA/RESEARCH AND INSIGHTS EXECUTIVE Supervising Physician PA/RESEARCH AND INSIGHTS EXECUTIVE Supervising Physician: MD Ann MDM Narrative MDM hospital course (for use when minimal MDM required): 19-year-old female presents to the emergency department today stating she is approximately 35 weeks patient reports acid reflux as well as right upper back pain patient reports she was sent here by OB Dr. Petersen to rule out gallstones. Patient denies any other complaints. No medication was taken prior to ER visit. No cough no fever no shortness of breath. Patient's workup today all came back unremarkable including ultrasound of gallbladder. Ultrasound of showed single live intrauterine gestation about 35 weeks and 5 days old heart rate of 135 no abnormality noted. Results discussed with the patient. Patient is probably having strain to the scapular area. Patient was advised to take Tylenol as needed for pain. Patient was sent to labor delivery for clearance prior to discharge. Diagnosis Differential Diagnosis ED Complaint MDM: , muscle strain, scapular area, , GERD, acid reflux, Diagnoses ruled out and/or further discussions: Muscle strain, scapular area, right, third trimester
[2025-03-14] MEDS: ACETAMINOPHEN 500 MG TABLET 1000 MG PO (18:39)
== END 2025-03-14 20:07 | disposition home or self-care (01) ==
LOC: S4SX 20:02
PROVIDERS: Nurse Practitioner Primary Care; Admitting Provider Obstetrics & Gynecology; Visit Provider Obstetrics & Gynecology
DX: O47.03 False labor before 37 completed weeks of gestation, third trimester (principal); Z3A.35 35 weeks gestation of pregnancy
CPT/HCPCS: 36415; 59025; 59899; 76705; 76805; 80053; 81001; 84702; 85025; 86900; 86901; A9270

== ENCOUNTER 2025-03-21 09:42 | Outpatient (AMB) | payer MEDICAID, SELFPAY ==
--- NOTE | 2025-03-21 09:48 | OBCLNT_ITS ---
Vital Signs 03/21/25 09:49 Height 1.6 m Height Method Measured Weight 107.218 kg Weight Measurement Method Standing Scale BMI 41.8 BP 110/72 Blood Pressure Source Automatic Cuff Blood Pressure Location Right Upper Arm Position Sitting Respiration 18 Pulse 106 H Pulse Source Monitor Temp 97.5 F Temp Source Temporal Artery Scan Pulse Oximetry (%) 97 Oxygen Delivery Method Room Air Allergies/Home Meds Allergies & Medications Allergies No Known Allergies Allergy (Verified 03/13/25 10:34) Intake Visit Data Collection New Patient or Established: Established Patient (seen at [facility] within 3 years) Reason for Visit:: OBC FOLLOW UP Seen by Clinical Staff ONLY (RN/MA): No Yellow Pages Space Salesperson Required: No Do You Feel Safe at Home: Yes Authorities Contacted: N/A PCP or OBGYN visit in last 3 months: Yes Hx Now: Yes Are you currently on any form of Control: No Pain Present Currently: No Smoking Status Smoking Status: Never smoker Questionnaires PHQ-9 PHQ-2 Over the last 2 weeks, how often have you been bothered by any of the following problems? 1. Little interest or pleasure in doing things: not at all PHQ-9 8. Moving or speaking so slowly that other people could have noticed? - Or the opposite - being so fidgety or restless that you have been moving around a lot more than usual: not at all Source: Developed by Drs. Jasiel Leon, Solange Wade, Jonnie Manzo and colleagues, with an educational laura from [employer]. Social History Living Situation History Lives With: Family Housing: House Tobacco History Smoking Status: Never smoker Second Hand Smoke Exposure: No Alcohol History Alcohol Intake: Never Domestic Abuse History Do You Feel Safe at Home: Yes Care OB Visit Log OB Flowsheet Initial Weight: Not Recorded Date -?-?-?-?-?-?-?-?-?-?-?-?- EGA Weight BP Alb Glu CTX Pres Fundal ht FHR Mov Dilation Station Effacement Hx Notes Visit Note 02/02/25 -?-?-?-?-?-?-?-?-?-?-?-?- 29w 3d 102.682 kg 119/77 absent unknown 31 147 active 19-year-old 1 para 0 for OBI. Happy about the . Patient is a transfer from [facility]. With records. History of obesity with the no other problems. Reports movement. Denies leaking. Denies bleeding. Patient will call [facility] for her last ultrasound was done 2 weeks ago. Referred to Dr. Castellano for dating sono and obesity. Discussed labor precautions. Increase fluids. Continue vitamins. Start on low-dose baby aspirin. Return in 2 weeks OB check 02/16/25 -?-?-?-?-?-?-?-?-?-?-?-?- 31w 3d 103.873 kg 109/73 absent unknown 31 145 active No OB complaints. Doing well. Fetus is active. Denies leaking, bleeding, contractions. Maternal- medicine ultrasound is pending. Discussed labor precautions. Increase fluids. Kick count twice a day. Return in 2 weeks OB check. I discussed Tdap. Patient declined for today 02/27/25 -?-?-?-?-?-?-?-?-?-?-?-?- 33w 0d 103.646 kg 118/78 absent cephalic 32 14 6 active Complains of increased mucus. Denies cough and runny nose. No temperature. Reports increased cramps. Fetus is active. No leaking or no bleeding. Comfort measures for URI. Discussed danger signs symptoms and ER precautions with parameters. Tylenol and khhr-uqc-xzjgper meds for help. Vicks is okay. Kick count twice a day. Increase fluids. Return in 2 weeks OB check. Patient has maternal- medicine sono March 08 03/13/25 -?-?-?-?-?-?-?-?-?-?-?-?- 35w 0d 106.141 kg 118/71 absent cephalic 35 14 5 active Fetus active. No leaking, bleeding, increased cramps. Begin disability today. GBS today. Discussed [facility] ultrasound results and dates. I discussed weight gain with patient and diet. Baby is growing in the 90th percentile. Kick count twice a day. Discussed labor precautions 03/21/25 -?-?-?-?--?-?-?-?-?-?-?-?- 36w 1d 107.218 kg 110/72 absent cephalic 36 14 5 active Increased back pain. You have to select the fetus active per patient. Denies leaking, bleeding, contractions disability start 03/13, discussed labor precautions. Discussed kick count. Discussed comfort measures for OP position. So that send return in a week OB check ATUL Calculator Estimated Delivery Date Method Current WG Current Estimate 04/17/25 Ultrasound #1 36w 1d Other Estimates 04/05/25 LMP (Certain) 37w 6d 04/17/25 Ultrasound #2 36w 1d 04/17/25 Manual 36w 1d sono:03/08: efw 90%, final atul:04/17/25 Notes Visit Date: 03/21/25 Last Updated by: Isatu Dia CNM 03/14: GBS- Visit Date: 03/13/25 Last Updated by: Isatu Dia CNM 03/08/25: final ATUL: 04/17/25 Visit Date: 02/02/25 Last Updated by: Isatu Dia CNM 19 yo g1po. lmp 06/29/24. EDC 04/05/25. 1st ob sono: 09/06/24. IUP:8w1, CEDC: 04/17/25. A+,abs-, rpr;;nr, rub imm, hbsag-, hiv-, HC-, GC/CT-, UA-, UT-, 1 gr ftt: 86, A1c: 5.3, NIPT/AFP/Carrier- Office Procedures OBC Clinic LOC & Office Proc's Nursing/Assessment Patient Status: Established Patient OB Clinic Nursing Assessment: Medication Reconciliation, Update PMH in EMR and Vital Signs OB Clinic Coordination of Care: Complex Care and Chronic Disease 1-5, Education Complex Pt/Fam, Consent,records obtained, informed consent and Results/Orders obtained Special Needs: Heart tones Established Patient Charge Established Patient Point Assignment: 115 Established Patient Point Charge: EP Level 3 (80-115) Assessment & Plan Diagnosis / Problem List (1) Encounter for supervision of high risk in third trimester, antepartum: Status: Acute Plan Discussed labor precautions. Discussed kick count. Discussed weight gain. Discussed diet. Discussed danger signs symptoms ER precautions. Discussed comfort measures for pain return with go check Additional Plan Follow Up: 1 Week (OBc)
[2025-03-21 09:49] VITALS: BP 110/72; PULSE 106; RESP 18; TEMP 36.4; O2SAT 97; BMI 41.8
== END 2025-03-21 10:04 | disposition home or self-care (01) ==
LOC: HODSOBC 09:42
PROVIDERS: Supervising Provider Advanced Practice Midwife; Visit Provider Advanced Practice Midwife
DX: O09.93 Supervision of high risk pregnancy, unspecified, third trimester (principal); Z3A.36 36 weeks gestation of pregnancy
CPT/HCPCS: 99213; G0463

== ENCOUNTER 2025-03-28 17:36 | Outpatient (CLI) | payer MEDICAID, SELFPAY ==
[2025-03-28 17:52] VITALS: BP 119/77; PULSE 85
[2025-03-28 18:01] VITALS: BP 119/77; PULSE 85; RESP 18; RESP 99; TEMP 36.7; BMI 33.9
== END 2025-03-28 18:20 | disposition home or self-care (01) ==
LOC: S4S1 17:37 → S4SX 17:39
PROVIDERS: Referring Provider Advanced Practice Midwife; Visit Provider Advanced Practice Midwife
DX: O36.8130 Decreased fetal movements, third trimester, not applicable or unspecified (principal); Z3A.37 37 weeks gestation of pregnancy
CPT/HCPCS: 59025

== ENCOUNTER 2025-03-29 09:34 | Outpatient (AMB) | payer MEDICAID, SELFPAY ==
[2025-03-29 09:39] VITALS: BP 112/65; PULSE 102; RESP 20; TEMP 36.3; O2SAT 98; BMI 39.8
--- NOTE | 2025-03-29 09:39 | OBCLNT_ITS ---
Vital Signs 03/29/25 09:39 Height 1.65 m Height Method Stated Weight 108.465 kg Weight Measurement Method Standing Scale BMI 39.8 BP 112/65 Blood Pressure Source Automatic Cuff Blood Pressure Location Right Upper Arm Position Sitting Respiration 20 Pulse 102 H Pulse Source Monitor Temp 97.4 F Temp Source Oral Pulse Oximetry (%) 98 Oxygen Delivery Method Room Air Allergies/Home Meds Allergies & Medications Allergies No Known Allergies Allergy (Verified 03/29/25 09:42) Medication Reconciliation vit no.95-ferrous fumarate 28 mg-folic acid 800 mcg tablet () tab PO 03/14/25 [History Confirmed 03/29/25] Intake Visit Data Collection New Patient or Established: Established Patient (seen at [facility] within 3 years) Reason for Visit:: CARE Seen by Clinical Staff ONLY (RN/MA): No Manager Employee Benefits Required: No Do You Feel Safe at Home: Yes Authorities Contacted: N/A PCP or OBGYN visit in last 3 months: Yes Hx Now: Yes Are you currently on any form of Control: No Pain Present Currently: No Pain Scale Used: [place]ral[place]-Farley/Numerical Pain scale:: 0 Smoking Status Smoking Status: Never smoker Questionnaires Covid-19 Vaccine Questionnaire Has patient been vacinated for Covid-19 Have you been vacinated for Covid-19: Yes PHQ-9 PHQ-2 Over the last 2 weeks, how often have you been bothered by any of the following problems? 1. Little interest or pleasure in doing things: not at all 2. Feeling down, depressed, or hopeless: not at all Total score: 0 PHQ-9 3. Trouble falling or staying asleep, or sleeping too much: Not at all 4. Feeling tired or having little energy: Not at all 5. Poor appetite or overeating: Not at all 6. Feeling bad about yourself - or that you are a failure or have let yourself or your family down: Not at all 7. Trouble concentrating on things, such as reading the newspaper or watching television: Not at all 8. Moving or speaking so slowly that other people could have noticed? - Or the opposite - being so fidgety or restless that you have been moving around a lot more than usual: not at all 9. Thoughts that you would be better off or of hurting yourself in some way: Not at all Source: Developed by Drs. Jasiel Leon, Solange Wade, Jonnie Manzo and colleagues, with an educational laura from [employer]. Depression screen completed yes Social History Living Situation History Lives With: Family Housing: House Tobacco History Smoking Status: Never smoker Second Hand Smoke Exposure: No Alcohol History Alcohol Intake: Never Domestic Abuse History Do You Feel Safe at Home: Yes Care OB Visit Log OB Flowsheet Initial Weight: Not Recorded Date -?-?-?-?-?-?-?-?-?-?-?-?- EGA Weight BP Alb Glu CTX Pres Fundal ht FHR Mov Dilation Station Effaceme nt Hx Notes Visit Note 02/02/25 -?-?-?-?-?-?-?-?-?-?-?-?- 29w 3d 102.682 kg 119/77 absent unknown 31 147 active 19-year-old 1 para 0 for OBI. Happy about the . Patient is a transfer from [facility]. With records. History of obesity with the no other problems. Reports movement. Denies leaking. Denies bleeding. Patient will call [facility] for her last ultrasound was done 2 weeks ago. Referred to Dr. Castellano for dating sono and obesity. Discussed labor precautions. Increase fluids. Continue vitamins. Start on low-dose baby aspirin. Return in 2 weeks OB check 02/16/25 -?-?-?-?-?-?-?-?-?-?-?-?- 31w 3d 103.873 kg 109/73 absent unknown 31 145 active No OB complaints. Doing well. Fetus is active. Denies leaking, bleeding, contractions. Maternal- medicine ultrasound is pending. Discussed labor precautions. Increase fluids. Kick count twice a day. Return in 2 weeks OB check. I discussed Tdap. Patient declined for today 02/27/25 -?-?-?-?-?-?-?-?-?-?-?-?- 33w 0d 103.646 kg 118/78 absent cephalic 32 14 6 active Complains of increased mucus. Denies cough and runny nose. No temperature. Reports increased cramps. Fetus is active. No leaking or no bleeding. Comfort measures for URI. Discussed danger signs symptoms and ER precautions with parameters. Tylenol and wwgx-gap-xdihhmg meds for help. Vicks is okay. Kick count twice a day. Increase fluids. Return in 2 weeks OB check. Patient has maternal- medicine sono March 08 03/13/25 -?-?-?-?-?-?-?-?-?-?-?-?- 35w 0d 106.141 kg 118/71 absent cephalic 35 14 5 active Fetus active. No leaking, bleeding, increased cramps. Begin disability today. GBS today. Discussed MFM ultrasound results and dates. I discussed weight gain with patient and diet. Baby is growing in the 90th percentile. Kick count twice a day. Discussed labor precautions 03/21/25 -?-?-?-?-?-?-?-?-?-?-?-?- 36w 1d 107.218 kg 110/72 absent cephalic 36 14 5 active Increased back pain. You have to select the fetus active per patient. Denies leaking, bleeding, contractions disability start 03/13, discussed labor precautions. Discussed kick count. Discussed comfort measures for OP position. So that send return in a week OB check 03/29/25 -?-?-?-?-?-?-?-?-?-?-?-?- 37w 2d 108.465 kg 112/65 absent cephalic 37 14 5 active 0.5 -3 40 Increased pre ssure and pelvic pain. Reports good movement. Denies leaking, bleeding. Patient is worried about the baby being big and would like an induction IOL 04/11/25 IOL 04/11/25, scheduled natividad ction of labor for April 11, 2025 for maternal obesity and LGA in the 90th percentile. Discussed labor precautions and kick count. Discussed danger signs symptoms and ER precautions. Return in a week for OB check. Discussed diet and weight ATUL Calculator Estimated Delivery Date Method Current WG Current Estimate 04/17/25 Ultrasound #1 37w 2d Other Estimates 04/05/25 LMP (Certain) 39w 0d 04/17/25 Ultrasound #2 37w 2d 04/17/25 Manual 37w 2d sono:03/08: efw 90%, final atul:04/17/25 Notes Visit Date: 03/21/25 Last Updated by: Isatu Dia CNM 03/14: GBS- Visit Date: 03/13/25 Last Updated by: Isatu Dia CNM 03/08/25: final ATUL: 04/17/25 Visit Date: 02/02/25 Last Updated by: Isatu Dia CNM 19 yo g1po. lmp 06/29/24. EDC 04/05/25. 1st ob sono: 09/06/24. IUP:8w1, CEDC: 04/17/25. A+,abs-, rpr;;nr, rub imm, hbsag-, hiv-, HC-, GC/CT-, UA-, UT-, 1 gr ftt: 86, A1c: 5.3, NIPT/AFP/Carrier- Office Procedures OBC Clinic LOC & Office Proc's Nursing/Assessment Patient Status: Established Patient OB Clinic Nursing Assessment: Medication Reconciliation, Update PMH in EMR and Vital Signs OB Clinic Coordination of Care: Complex Care and Chronic Disease 1-5, Consent,records obtained, informed consent, Education Simp Pt/Fam, Lab and Imaging orders, Results/Orders obtained and Staff clarify orders Special Needs: Heart tones Established Patient Charge Established Patient Point Assignment: 135 Established Patient Point Charge: EP Level 4 (120-155) Assessment & Plan Diagnosis / Problem List (1) Encounter for supervision of high risk in third trimester, ante : Status: Acute Plan Schedule induction of labor for 04/11/2025. Discussed labor precautions and kick count. Discussed ER precautions. Increase fluids. Return in a week OB check Additional Plan Follow Up: 1 Week (obc)
== END 2025-03-29 09:44 | disposition home or self-care (01) ==
LOC: HODSOBC 09:34
PROVIDERS: Supervising Provider Advanced Practice Midwife; Visit Provider Advanced Practice Midwife
DX: O09.893 Supervision of other high risk pregnancies, third trimester (principal); O36.63X0 Maternal care for excessive fetal growth, third trimester, not applicable or unspecified; O99.213 Obesity complicating pregnancy, third trimester; Z3A.37 37 weeks gestation of pregnancy
CPT/HCPCS: 99214; G0463

== ENCOUNTER 2025-04-04 09:04 | Outpatient (AMB) | payer MEDICAID, SELFPAY ==
[2025-04-04 09:16] VITALS: BP 110/76; PULSE 97; RESP 18; TEMP 36.6; O2SAT 97; BMI 39.9
--- NOTE | 2025-04-04 09:16 | OBCLNT_ITS ---
Vital Signs 04/04/25 09:16 Height 1.65 m Height Method Stated Weight 108.635 kg Weight Measurement Method Standing Scale BMI 39.9 BP 110/76 Blood Pressure Source Automatic Cuff Blood Pressure Location Left Upper Arm Position Sitting Respiration 18 Pulse 97 Pulse Source Monitor Temp 97.8 F Temp Source Oral Pulse Oximetry (%) 97 Oxygen Delivery Method Room Air Allergies/Home Meds Allergies & Medications Allergies No Known Allergies Allergy (Verified 04/04/25 09:17) Medication Reconciliation vit no.95-ferrous fumarate 28 mg-folic acid 800 mcg tablet () tab PO 03/14/25 [History Confirmed 04/04/25] Intake Visit Data Collection New Patient or Established: Established Patient (seen at [facility] within 3 years) Reason for Visit:: CARE Seen by Clinical Staff ONLY (RN/MA): No Senior Account Clerk Required: No Do You Feel Safe at Home: Yes Authorities Contacted: N/A PCP or OBGYN visit in last 3 months: Yes Hx Now: Yes Are you currently on any form of Control: No Pain Present Currently: No Pain Scale Used: [place]-Farley/Numerical Pain scale:: 0 Smoking Status Smoking Status: Never smoker Questionnaires Covid-19 Vaccine Questionnaire Has patient been vacinated for Covid-19 Have you been vacinated for Covid-19: No PHQ-9 PHQ-2 Over the last 2 weeks, how often have you been bothered by any of the following problems? 1. Little interest or pleasure in doing things: not at all 2. Feeling down, depressed, or hopeless: not at all Total score: 0 PHQ-9 3. Trouble falling or staying asleep, or sleeping too much: Not at all 4. Feeling tired or having little energy: Not at all 5. Poor appetite or overeating: Not at all 6. Feeling bad about yourself - or that you are a failure or have let yourself or your family down: Not at all 7. Trouble concentrating on things, such as reading the newspaper or watching television: Not at all 8. Moving or speaking so slowly that other people could have noticed? - Or the opposite - being so fidgety or restless that you have been moving around a lot more than usual: not at all 9. Thoughts that you would be better off or of hurting yourself in some way: Not at all Total score: 0 Source: Developed by Drs. Jasiel Leon, Solange Wade, Jonnie Manzo and colleagues, with an educational laura from [employer] Depression screen completed yes Social History Living Situation History Lives With: Family Housing: House Tobacco History Smoking Status: Never smoker Second Hand Smoke Exposure: No Alcohol History Alcohol Intake: Never Domestic Abuse History Do You Feel Safe at Home: Yes Care OB Visit Log OB Flowsheet Initial Weight: Not Recorded Date -?-?-?-?-?-?-?-?-?-?-?-?- EGA Weight BP Alb Glu CTX Pres Fundal ht FHR Mov Dilation Station Effacement Hx Notes Visit Note 02/02/25 -?-?-?-?-?-?-?-?-?-?-?-?- 29w 3d 102.682 kg 119/77 absent unknown 31 147 active 19-year-old 1 para 0 for OBI. Happy about the . Patient is a transfer from [facility]. With records. History of obesity with the no other problems. Reports movement. Denies leaking. Denies bleeding. Patient will call [facility] for her last ultrasound was done 2 weeks ago. Referred to Dr. Castellano for dating sono and obesity. Discussed labor precautions. Increase fluids. Continue vitamins. Start on low-dose baby aspirin. Return in 2 weeks OB check 02/16/25 -?-?-?-?-?-?-?-?-?-?-?-?- 31w 3d 103.873 kg 109/73 absent unknown 31 145 active No OB complaints. Doing well. Fetus is active. Denies leaking, bleeding, contractions. Maternal- medicine ultrasound is pending. Discussed labor precautions. Increase fluids. Kick count twice a day. Return in 2 weeks OB check. I discussed Tdap. Patient declined for today 02/27/25 -?-?-?-?-?-?-?-?-?-?-?-?- 33w 0d 103.646 kg 118/78 absent cephalic 32 14 6 active Complains of increased mucus. Denies cough and runny nose. No temperature. Reports increased cramps. Fetus is active. No leaking or no bleeding. Comfort measures for URI. Discussed danger signs symptoms and ER precautions with parameters. Tylenol and grdd-coz-iuzbuvs meds for help. Vicks is okay. Kick count twice a day. Increase fluids. Return in 2 weeks OB check. Patient has maternal- medicine sono March 08 03/13/25 -?-?-?-?-?-?-?-?-?-?-?-?- 35w 0d 106.141 kg 118/71 absent cephalic 35 14 5 active Fetus active. No leaking, bleeding, increased cramps. Begin disability today. GBS today. Discussed MFM ultrasound results and dates. I discussed weight gain with patient and diet. Baby is growing in the 90th percentile. Kick count twice a day. Discussed labor precautions 03/21/25 -?-?-?-?-?-?-?-?-?-?-?-?- 36w 1d 107.218 kg 110/72 absent cephalic 36 14 5 active Increased back pain. You have to select the fetus active per patient. Denies leaking, bleeding, contractions disability start 03/13, discussed labor precautions. Discussed kick count. Discussed comfort measures for OP position. So that send return in a week OB check 03/29/25 -?-?-?-?-?-?-?-?-?-?-?-?- 37w 2d 108.465 kg 112/65 absent cephalic 37 14 5 active 0.5 -3 40 Increased pressure and pelvic pain. Reports good movement. Denies leaking, bleeding. Patient is worried about the baby being big and would like an induction IOL 04/11/25 IOL 04/11/25, scheduled natividad ction of labor for April 11, 2025 for maternal obesity and LGA in the 90th percentile. Discussed labor precautions and kick count. Discussed danger signs symptoms and ER precautions. Return in a week for OB check. Discussed diet and weight 04/04/25 -?-?-?-?-?-?-?-?-?-?-?-?- 38w 1d 108.635 kg 110/76 absent cephalic 38 14 5 active 1 -3 50 History of depression. Patient's [place] 11 for induction. Patient has LGA baby 90th percentile. Reports good movement. Denies leaking, bleeding. Increased pressure. Induction of labor scheduled for April 11/2025. Reviewed induction with patient. Discussed labor precautions and kick count twice a day. Patient will continue to avoid sugary foods in her diet. Increase activity. Discussed kick count twice a day. Return on Wednesday for OB check ATUL Calculator Estimated Delivery Date Method Current WG Current Estimate 04/17/25 Ultrasound #1 38w 1d Other Estimates 04/05/25 LMP (Certain) 39w 6d 04/17/25 Ultrasound #2 38w 1d 04/17/25 Manual 38w 1d sono:03/08: efw 90%, final atul:04/17/25 Notes Visit Date: 03/21/25 Last Updated by: Isatu Dia CNM 03/14: GBS- Visit Date: 03/13/25 Last Updated by: Isatu Dia CNM 03/08/25: final ATUL: 04/17/25 Visit Date: 02/02/25 Last Updated by: Isatu Dia CNM 19 yo g1po. lmp 06/29/24. EDC 04/05/25. 1st ob sono: 09/06/24. IUP:8w1, CEDC: 04/17/25. A+,abs-, rpr;;nr, rub imm, hbsag-, hiv-, HC-, GC/CT-, UA-, UT-, 1 gr ftt: 86, A1c: 5.3, NIPT/AFP/Carrier- Office Procedures OBC Clinic LOC & Office Proc's Nursing/Assessment Patient Status: Established Patient OB Clinic Nursing Assessment: Medication Reconciliation, Update PMH in EMR and Vital Signs OB Clinic Coordination of Care: Complex Care and Chronic Disease 1-5, Consent,records obtained, informed consent, Education Simp Pt/Fam, Lab and Imaging orders, Results/Orders obtained and Staff clarify orders Special Needs: Heart tones Established Patient Charge Established Patient Point Assignment: 135 Established Patient Point Charge: EP Level 4 (120-155) Assessment & Plan Diagnosis / Problem List (1) Encounter for supervision of high risk in third trimester, antepartum: Status: Acute Plan Discussed labor precautions. Kick count twice a day. Induction of labor for 04/11/2025. And I discussed induction with patient in the process. Increase fluids. Continue prenatals. Return in a week for OB check Additional Plan Follow Up: 1 Week (obc)
== END 2025-04-04 09:51 | disposition home or self-care (01) ==
LOC: HODSOBC 09:04
PROVIDERS: Supervising Provider Advanced Practice Midwife; Visit Provider Advanced Practice Midwife
DX: O09.893 Supervision of other high risk pregnancies, third trimester (principal); O36.63X0 Maternal care for excessive fetal growth, third trimester, not applicable or unspecified; Z3A.38 38 weeks gestation of pregnancy
CPT/HCPCS: 99214; G0463

== ENCOUNTER 2025-04-10 09:57 | Outpatient (AMB) | payer MEDICAID, SELFPAY ==
[2025-04-10 10:07] VITALS: BP 106/71; PULSE 106; RESP 17; TEMP 36.3; O2SAT 97; BMI 41.0
--- NOTE | 2025-04-10 10:07 | OBCLNT_ITS ---
Vital Signs 04/10/25 10:07 Height 1.65 m Height Method Stated Weight 111.64 kg Weight Measurement Method Standing Scale BMI 41.0 BP 106/71 Blood Pressure Source Automatic Cuff Blood Pressure Location Right Upper Arm Position Sitting Respiration 17 Pulse 106 H Pulse Source Monitor Temp 97.4 F Temp Source Temporal Artery Scan Pulse Oximetry (%) 97 Oxygen Delivery Method Room Air Allergies/Home Meds Allergies & Medications Allergies No Known Allergies Allergy (Verified 04/10/25 10:08) Medication Reconciliation vit no.95-ferrous fumarate 28 mg-folic acid 800 mcg tablet () tab PO 03/14/25 [History Confirmed 04/10/25] Intake Visit Data Collection New Patient or Established: Established Patient (seen at [facility] within 3 years) Reason for Visit:: OBC Seen by Clinical Staff ONLY (RN/MA): No Local Company Tanker Driver Required: No Do You Feel Safe at Home: Yes Authorities Contacted: N/A PCP or OBGYN visit in last 3 months: Yes Date of Last PCP or OBGYN visit: 04/04/25 Hx Now: Yes Are you currently on any form of Control: No Pain Present Currently: No Pain Scale Used: [place]-Far[place]/Numerical Pain scale:: 0 Smoking Status Smoking Status: Never smoker Questionnaires Covid-19 Vaccine Questionnaire Has patient been vacinated for Covid-19 Have you been vacinated for Covid-19: No PHQ-9 PHQ-2 Over the last 2 weeks, how often have you been bothered by any of the following problems? 1. Little interest or pleasure in doing things: not at all 2. Feeling down, depressed, or hopeless: not at all Total score: 0 PHQ-9 3. Trouble falling or staying asleep, or sleeping too much: Not at all 4. Feeling tired or having little energy: Not at all 5. Poor appetite or overeating: Not at all 6. Feeling bad about yourself - or that you are a failure or have let yourself or your family down: Not at all 7. Trouble concentrating on things, such as reading the newspaper or watching television: Not at all 8. Moving or speaking so slowly that other people could have noticed? - Or the opposite - being so fidgety or restless that you have been moving around a lot more than usual: not at all 9. Thoughts that you would be better off or of hurting yourself in some way: Not at all Total score: 0 If you checked off any problems, how difficult have these problems made it for you to do your work, take care of things at home, or get along with other people?: not difficult at all Source: Developed by Drs. Jasiel Leon, Solange Wade, Jonnie Manzo and colleagues, with an educational laura from [employer]. Depression screen completed yes Social History Living Situation History Marital Status: Lives With: Family Housing: House Tobacco History Smoking Status: Never smoker Second Hand Smoke Exposure: No Alcohol History Alcohol Intake: Never Domestic Abuse History Do You Feel Safe at Home: Yes Care OB Visit Log OB Flowsheet Initial Weight: Not Recorded Date -?-?-?-?-?-?-?-?-?-?-?-?- EGA Weight BP Alb Glu CTX Pres Fundal ht FHR Mov Dilation Station Effacement Hx Notes Visit Note 02/02/25 -?-?-?-?-?-?-?-?-?-?-?-?- 29w 3d 102.682 kg 119/77 absent unknown 31 147 active 19-year-old 1 para 0 for OBI. Happy about the . Patient is a transfer from [facility]. With records. History of obesity with the no other problems. Reports movement. Denies leaking. Denies bleeding. Patient will call [facility] for her last ultrasound was done 2 weeks ago. Referred to Dr. Castellano for dating sono and obesity. Discussed labor precautions. Increase fluids. Continue vitamins. Start on low-dose baby aspirin. Return in 2 weeks OB check 02/16/25 -?-?-?-?-?-?-?-?-?-?-?-?- 31w 3d 103.873 kg 109/73 absent unknown 31 145 active No OB complaints. Doing well. Fetus is active. Denies leaking, bleeding, contractions. Maternal- medicine ultrasound is pending. Discussed labor precautions. Increase fluids. Kick count twice a day. Return in 2 weeks OB check. I discussed Tdap. Patient declined for today 02/27/25 -?-?-?-?-?-?-?-?-?-?-?-?- 33w 0d 103.646 kg 118/78 absent cephalic 32 14 6 active Complains of increased mucus. Denies cough and runny nose. No temperature. Reports increased cramps. Fetus is active. No leaking or no bleeding. Comfort measures for URI. Discussed danger signs symptoms and ER precautions with parameters. Tylenol and [id number] meds for help. Vicks is okay. Kick count twice a day. Increase fluids. Return in 2 weeks OB check. Patient has maternal- medicine sono March 08 03/13/25 -?-?-?-?-?-?-?-?-?-?-?-?- 35w 0d 106.141 kg 118/71 absent cephalic 35 14 5 active Fetus active. No leaking, bleeding, increased cramps. Begin disability today. GBS today. Discussed MFM ultrasound results and dates. I discussed weight gain with patient and diet. Baby is growing in the 90th percentile. Kick count twice a day. Discussed labor precautions 03/21/25 -?-?--?-?-?-?-?-?-?-?-?-?- 36w 1d 107.218 kg 110/72 absent cephalic 36 14 5 active Increased back pain. You have to select the fetus active per patient. Denies leaking, bleeding, contractions disability start 03/13, discussed labor precautions. Discussed kick count. Discussed comfort measures for OP position. So that send return in a week OB check 03/29/25 -?-?-?-?-?-?-?-?-?-?-?-?- 37w 2d 108.465 kg 112/65 absent cephalic 37 14 5 active 0.5 -3 40 Increased pressure and pelvic pain. Reports good movement. Denies leaking, bleeding. Patient is worried about the baby being big and would like an induction IOL 04/11/25 IOL 04/11/25, scheduled natividad ction of labor for April 11, 2025 for maternal obesity and LGA in the 90th percentile. Discussed labor precautions and kick count. Discussed danger signs symptoms and ER precautions. Return in a week for OB check. Discussed diet and weight 04/04/25 -?-?-?-?-?-?-?-?-?-?-?-?- 38w 1d 108.635 kg 110/76 absent cephalic 38 14 5 active 1 -3 50 History of depression. Patient's [place] her April 11 for induction. Patient has LGA baby 90th percentile. Reports good movement. Denies leaking, bleeding. Increased pressure. Induction of labor scheduled for April 11/2025. Reviewed induction with patient. Discussed labor precautions and kick count twice a day. Patient will continue to avoid sugary foods in her diet. Increase activity. Discussed kick count twice a day. Return on Wednesday for OB check 04/10/25 -?-?-?-?-?-?-?-?-?-?-?-?- 39w 0d 111.64 kg 106/71 occasional cephalic 40 145 active 1 -3 50 Reports good movement. Denies leaking or bleeding. Occasional contractions and pressure. Induction of lab or for April 11 scheduled. Discussed labor precautions and kick count twice a day with patient. Patient will call for bed availability tomorrow morning. Discussed danger signs symptoms and ER precautions ATUL Calculator Estimated Delivery Date Method Current WG Current Estimate 04/17/25 Ultrasound #1 39w 0d Other Estimates 04/05/25 LMP (Certain) 40w 5d 04/17/25 Ultrasound #2 39w 0d 04/17/25 Manual 39w 0d sono:03/08: efw 90%, final atul:04/17/25 Notes Visit Date: 03/21/25 Last Updated by: Isatu Dia CNM 03/14: GBS- Visit Date: 03/13/25 Last Updated by: Isatu Dia CNM 03/08/25: final ATUL: 04/17/25 Visit Date: 02/02/25 Last Updated by: Isatu Dia CNM 19 yo g1po. lmp 06/29/24. EDC 04/05/25. 1st ob sono: 09/06/24. IUP:8w1, CEDC: 04/17/25. A+,abs-, rpr;;nr, rub imm, hbsag-, hiv-, HC-, GC/CT-, UA-, UT-, 1 gr ftt: 86, A1c: 5.3, NIPT/AFP/Carrier- Office Procedures OBC Clinic LOC & Office Proc's Nursing/Assessment Patient Status: Established Patient OB Clinic Nursing Assessment: Medication Reconciliation, Update PMH in EMR and Vital Signs OB Clinic Coordination of Care: Complex Care and Chronic Disease 1-5, Education Complex Pt/Fam, Consent,records obtained, informed consent and Staff clarify orders Special Needs: Heart tones Established Patient Charge Established Patient Point Assignment: 120 Established Patient Point Charge: EP Level 4 (120-155) Assessment & Plan Diagnosis / Problem List (1) Encounter for supervision of high risk in third trimester, antepartum: Status: Acute Plan Induction of labor scheduled for April 11. Discussed labor precautions and kick count twice a day. Discussed ER precautions. Continue prenatals. Patient was scheduled for a week in case she does not get in. Additional Plan Follow Up: 1 Week (obc)
== END 2025-04-10 10:38 | disposition home or self-care (01) ==
LOC: HODSOBC 09:57
PROVIDERS: Supervising Provider Advanced Practice Midwife; Visit Provider Advanced Practice Midwife
DX: O09.93 Supervision of high risk pregnancy, unspecified, third trimester (principal); Z3A.39 39 weeks gestation of pregnancy
CPT/HCPCS: 99214; G0463

== ENCOUNTER 2025-04-10 23:24 | Inpatient (IN) | payer MEDICAID, SELFPAY ==
[2025-04-10 23:40] VITALS: BP 123/86; PULSE 98; PULSE 99; O2SAT 99
[2025-04-10 23:45] VITALS: PULSE 97; O2SAT 99
[2025-04-10 23:50] VITALS: PULSE 97; O2SAT 99
[2025-04-10 23:55] VITALS: PULSE 95; O2SAT 98; BMI 44.1
[2025-04-11] VITALS (59 sets, daily range): BP systolic 111–128; BP diastolic 58–86; PULSE 75–99; RESP 18–19; TEMP 36.6–37.2; O2SAT 88–100
[2025-04-11 00:16] LABS: Basophils # (Auto) 0.0 Thou/mm3 (0.0-0.2); Basophils % (Auto) 0 % (0-2.5); Eosinophils # (Auto) 0.3 Thou/mm3 (0.0-0.5); Eosinophils % (Auto) 4 % (0-10); Hematocrit 35.3 % (36.0-46.0); Hemoglobin 12.0 g/dL (12.0-16.0); Immature Granulocytes Auto 0.09 Thou/mm3 (0.00-0.00); Lymphocytes # (Auto) 1.4 Thou/mm3 (1.0-4.8); Lymphocytes % (Auto) 20 % (10-50); Mean Corpuscular HGB Conc 34.0 g/dl (31.0-37.0); Mean Corpuscular Hemoglobin 30.5 pg (25.0-35.0); Mean Corpuscular Volume 90 fL (80-100); Monocytes # (Auto) 0.6 Thou/mm3 (0.0-0.8); Monocytes % (Auto) 8 % (0-12); Neutrophils # (Auto) 4.7 Thou/mm3 (1.8-7.7); Neutrophils % (Auto) 66 % (37-80); Nucleated Red Blood Cell # 0.00 Thou/mm3 (0.00-0.00); Nucleated Red Blood Cell % 0 /100 WBC (0); Platelet Count 181 Thou/mm3 (140-440); RDW Standard Deviation 46.5 fL (36.4-46.3); Red Blood Count 3.93 Miln/mm3 (4.00-5.20); White Blood Count 7.2 Thou/mm3 (3.6-11.0)
--- NOTE | 2025-04-11 00:20 | XR_ITS ---
Examination: Complete OB ultrasound greater than 14 weeks Date and time of exam: April 11, 2025, 0126 hours INDICATIONS: Preop labor induction Findings: Viable intrauterine single fetus with single amniotic sac presentation cephalic Cardiac motion 140 bpm Placenta posterior grade 3 Medical cord insertion seen Amniotic fluid index 13.2 cm Cervix obscured by bowel gas. Ovaries obscured by bowel gas. Composite estimated gestational age based on BPD, head circumference, abdominal circumference, femur length is 39 weeks 1 day Estimated weight 3696.5 g. Survey of intracranial anatomy, spinal anatomy, abdominal anatomy, four-chamber heart performed with no abnormalities identified. Impression: Viable intrauterine gestation in cephalic presentation.
[2025-04-11 00:50] LABS: Syphilis Nonreactive (Nonreactive)
[2025-04-11] MEDS: RINGERS LACTATED 1000 ML 1,000 ML 100 ML IV (01:12)
--- NOTE | 2025-04-11 02:54 | PRELIM_ITS ---
Obstetric ultrasound. April 11, 2025 at 0126 hours Clinical history: EFW, presentation. Comparison: No prior study is available for comparison. Findings: Single live intrauterine gestation with estimated weight of 3696 g ??547. Ultrasound gestational age is 39 weeks 1 day. Estimated due date is April 17 2025. presentation cephalic, heart rate is 140 bpm. Placenta is posterior, grade 3. Amniotic fluid index is 13.2 cm. anatomic survey is unremarkable to the extent visualized. Maternal ovaries were not identified. Impression: Unremarkable intrauterine gestation. Report Electronically Signed By: Fausto Rendon 04/11/2025 2:54:02 AM [EST]
--- NOTE | 2025-04-11 11:59 | ESHP_ITS ---
Documentation for date of: 04/11/25 OB Labor/Induct. HPI History of Present Illness Chief complaint: scheduled induction : 1 Para: 0 Term pregnancies: 0 pregnancies: 0 Living children: 0 History of Abortions: Spontaneous and Elective: 0 History of sections: No History of : No Date of last menstrual period: 06/29/24 ATUL: 04/17/25 Gestational Age (weeks): 39 Gestational Age (days): 1 Gestational age based on last menstrual period: 40 Indication for induction: other (macrosomia) History of present illness: Patient presents for scheduled induction of labor. Indication: macrosomia. No regular/painful ctx. No LOF. No vaginal bleeding. Normal movement. History of Present Dating criteria: based on 1st trimester US only (1st ob sono: 09/06/24. IUP:8w1, CEDC: 04/17/25.) Adequate Care: Yes Abnormal ultrasound findings: 3rd trimester ultrasound: 90th%ile Narrative: complicated by Obesity, current BMI 44.1, Rx'd baby ASA 3rd trimester ultrasound: 90th%ile Labs Maternal Blood Type: A Pos Labs: Positive: Rubella Titre, Negative: RPR, Hepatitis B, HIV, Chlamydia, Gonorrhea and Group Beta Strep and Unknown: Herpes Type 1, Herpes Type 2 and Covid-19 Narrative: A+,abs-, rpr;;nr, rub imm, hbsag-, hiv-, HC-, GC/CT-, UA-, UT-, 1 hr ftt: 86, A1c: 5.3, NIPT/AFP/Carrier- Review of Systems Review of Systems Narrative Review of Systems: Review of Systems Systems Reviewed: All systems reviewed, normal except as documented Constitutional Constitutional: Denies body ache(s), Denies chills, Denies fever(s) and Denies headache(s) ENT Ears, Nose, Mouth, and Throat: Denies headache(s) and Denies vertigo Cardiovascular Cardiovascular: Denies chest pain, Denies palpitations, Denies dyspnea and Denies syncope Respiratory Respiratory: Denies cough, Denies dyspnea Gastrointestinal Gastrointestinal: Denies nausea and Denies vomiting Neurologic Neurologic: Denies convulsions, Denies headache(s), Denies other visual disturbances, Denies syncope and Denies vertigo Past Medical History Family History OTHER FAMILY HX: non-contributory Surgical History SURGICAL: Negative Section Social History SOCIAL: No tobacco/ETOH/illicit drug use Past Medical History Comments PMH COMMENT: Obesity Hx of depression in the past Meds Home Medications and Allergies Home Medications ?Medication ?Instructions ?Recorded ?Confirmed ?Type vit no.95-ferrous tab PO 03/14/25 04/10/25 Hi story fumarate 28 mg-folic acid 800 mcg tablet () Allergies Allergy/AdvReac Type Severity Reaction Status Date / Time No Known Allergies Allergy Verified 04/10/25 10:08 OB Exam Physical Exam Vital signs: Temp Pulse Resp BP Pulse Ox O2 Del Method 98.9 F 91 18 125/74 99 Room Air 04/11/25 03:50 04/11/25 11:34 04/11/25 03:50 04/11/25 11:34 04/11/25 00:00 04/11/25 03:50 Narrative: General: well developed, well nourished, no acute distress, conversant Cardiac: normal heart rate Lungs: breathing without distress Abdomen: soft, gravid, non-tender, no rebound or guarding Extremities: no pain with palpation of calves Detailed Labor and Delivery Exam Dilation (cm): 1 Effacement (%): 0 Cervix position: posterior station: -3 Consistency: firm Presentation: Vertex Membranes: intact monitor accelerations: 15x15 monitor decelerations: None care home variability: Moderate (11-25) Contraction frequency (min): no ctx pattern OB Results Labs 04/10/25 23:54 Labs: Short CBC 04/10/25 Range/Units 23:54 WBC 7.2 (3.6-11.0) Thou/mm3 Hgb 12.0 (12.0-16.0) g/dL Hct 35.3 L (36.0-46.0) % Plt Count 181 (140-440) Thou/mm3 OB Assessment & Plan Assessment and Plan (1) Encounter for induction of labor: Status: Acute Assessment and plan: Lidia is a 19yo with SIUP at 39&1wk presenting for IOL for: macrosomia in the setting of maternal BMI 44.1. SCE: 1/thick/high. Intact. Vitals wnl, benign exam. Reassuring assessment overall. PMhx/PNC significant for: - macrosomia, 90th%ile -Obesity, current BMI 44.1 -Hx of depression in the past -PNC with BHARATHI Dia Plan: -Admit to L&D -Establish IV, routine labs -CEFM -Regular diet [id number], then clear liquid diet in labor -OB ultrasound for updated EFW -Excavating Contractor/consent re: iol and -GBS status: negative -Will initiate IOL with: cervidil -Anticipate -Safe to proceed Aggie Jennings MD (2) Macrosomia affecting management of mother: Status: Acute (3) Obesity affecting in third trimester: Status: Acute (2) Macrosomia affecting management of mother Qualifiers: Fetus number: single or unspecified fetus Trimester: third trimester Q ualified Code(s): O36.63X0 - Maternal care for excessive growth, third trimester, not applicable or unspecified (3) Obesity affecting in third trimester Qualifiers: Obesity type affecting : unspecified obesity Qualified Code(s): O 99.213 - Obesity complicating , third trimester
[2025-04-11] MEDS: fentaNYL CIT INJ 50 mCg/ML AMP 2ML 100 MCG IVP (13:57)
--- NOTE | 2025-04-11 13:59 | PD.LDPN ---
Documentation for date of: 04/11/25 OB Labor Progress Note Pelvic Exam Dilation (cm): 1.5 Effacement (%): 50 station: -3 Amniotic membrane status: Intact Contractions Monitor mode: External Contraction frequency: irregular Contraction pattern: Tetanic Contraction intensity: Mild Status status: Category l Assessment and Plan Comments: Intra- Note Patient doing well. Cervidil removed at 12hr abimael and SCE /-3. Vitals wnl, afebrile Cat I FHRT, irregular ctx Myrick cervical balloon placed with 40cc NS intra-uterine only, 25mcg cytotec placed PV. Patient requesting IV pain medication afterwards. Discussed ok to receive epidural whenever she wishes as well. Will continue cytotec 25mcg PV Q4hr as ctx pattern allows Await cervical myrick balloon falling out CEFM Continue to closely monitor Safe to proceed Aggie Jennings MD
[2025-04-12] VITALS (312 sets, daily range): BP systolic 91–157; BP diastolic 50–98; PULSE 72–112; RESP 14–22; TEMP 36.9–38.3; O2SAT 86–100
--- NOTE | 2025-04-12 00:04 | PD.LDPN ---
Documentation for date of: 04/12/25 OB Labor Progress Note Pelvic Exam Dilation (cm): 4.5 Effacement (%): 50 station: -3 Amniotic membrane status: Intact Contractions Monitor mode: External Contraction frequency: x3 Contraction pattern: Coupling Contraction intensity: Moderate Status status: Category l Assessment and Plan Comments: Intrapartum Note Lidia recently received epidural. Vitals wnl, afebrile Cervical myrick balloon came out at 2330, and SCE is 4/50/-3. Most recent dose of cytotec was held off of since patient was jesus q3-5min regularly. Now it appears ctx are spacing out to 6min or so, so will continue cytotec 25mcg PV Q4hr until there is more effacement and then will proceed with IV pitocin when appropriate. Continue to closely monitor CEFM Safe to proceed Aggie Jennings MD History of Present Illness HPI Patient presents for scheduled induction of labor. Indication: macrosomia. No regular/painful ctx. No LOF. No vaginal bleeding. Normal movement.
[2025-04-12] MEDS: RINGERS LACTATED 1000 ML 1,000 ML 100 ML IV ×3 (00:53→15:33)
[2025-04-12] MEDS: OXYTOCIN in NS 30 units 30 UNIT/500 ML BAG IV (05:06)
--- NOTE | 2025-04-12 07:12 | PD.LDPN ---
Documentation for date of: 04/12/25 OB Labor Progress Note Pelvic Exam Dilation (cm): 5 Effacement (%): 60 station: -2 Amniotic membrane status: Intact Contractions Monitor mode: External Contraction frequency: 3-4 Contraction pattern: Tetanic Contraction intensity: Moderate Status status: Category l Assessment and Plan Comments: Intrapartum Note Patient doing well. Has epidural. Vitals wnl, afebrile Cat I FHRT Ctx q3-5min SCE: 5/60/-2 Plan to start IV pitocin and titrate per protocol CEFM Continue to closely monitor Safe to proceed Aggie Jennings MD
--- NOTE | 2025-04-12 14:46 | ESPR_ITS ---
Documentation for date of: 04/12/25 OB Labor Progress Note Pelvic Exam Dilation (cm): 5 Effacement (%): 80 station: -2 Amniotic membrane status: Intact Contractions Monitor mode: External Contraction frequency: 1-5 Contraction pattern: Tetanic Contraction intensity: Moderate Status status: Category ll Assessment and Plan Comments: Intrapartum Note Patient doing well currently, just having some discomfort at the site of the epidural after lying in one position for a while. Recently ELECTRONICS SYSTEM MECHANIC bolused epidural which really helped with ctx pain. She was having so much discomfort that pitocin was stopped for a short period of time while bolused epidural was becoming more effective for her. Vitals wnl, afebrile Cat I-II FHRT for rare late decels that resolve with repositioning, +accels, mod lan [place]: ctx q3min SCE: 5-6/80/-2. hair palpable so SROM occurred sometime between now and previous check. Fluid appears clear/blood-tinged. IUPC and FSE placed. Plan: -Continue to titrate pitocin to adequate MVUs -CEFM -Continue to closely monitor -Safe to proceed Aggie Jennings MD
[2025-04-12] MEDS: MINERAL OIL 30 ML UDC TOP (21:04)
[2025-04-12] MEDS: OXYTOCIN in NS 20 units 20 UNIT/1,000 ML BAG 125 UNIT IV (21:07)
--- NOTE | 2025-04-12 21:42 | PD.LDDELS ---
Data (Patel) Data Hx Section: No : 1 Term: 0 : 0 Livin Abortions: Spontaneous & Theraputic: 0 Delivery Data (Patel) Labor Data Initiation of labor: Induction Induction/Augmentation Agent: Cervical Balloon and Pitocin ROM date: 04/12/25 ROM time: 12:25 Amniotic membrane rupture type: Spontaneous Amniotic fluid description: Clear Delivery Data Onset of labor date: 04/12/25 Onset of labor time: 08:00 Complete dilation date: 04/12/25 Complete dilation time: 19:50 delivery date: 04/12/25 [place] delivery time: 21:06 Placenta delivery date: 04/12/25 Placenta delivery time: 21:12 Stage 1 total time: Labor - Stage 1 Duration 11 hours and 50 minutes Delivered by: Dr Jennings Delivery nurse: Fernando Kenney nurse: Cindy ANTOINE Competitive Intelligence Analyst at delivery: No Support person(s) at delivery: FOB and mother Other staff at delivery: Nicole ANTOINEhand rug cleaner Method Delivery method: Normal Vaginal Delivery Presentation: Vertex Anesthesia Type Anesthesia Type: Epidural Placenta Placenta delivery description: Spontaneous Cord blood sent to lab: Yes cord blood collection: Cord Blood Type Episiotomy Episiotomy description: None EBL Estimated blood loss (ml): 350 Umbilical Cord cord description: 3 Vessels Additional Procedures Lidia is a 19yo s/p uncomplicated at 39&1wk after induction of labor for macrosomia in the setting of current BMI 44.1, delivering at 2106 on 04/12/2025. On presentation, SCE was 1/thick/high. She progressed with cervidil, PV cytotec, cervical myrick bulb and then pitocin augmentation to C/C/0 at which point she began pushing. She received an epidural. With good maternal pushing efforts, 's head delivered OA and restituted LY. Right anterior shoulder delivered easily followed by posterior shoulder and corpus. Terminal meconium noted. had spontaneous cry and was vigorous. Apgars 9/9. Infant placed on maternal abdomen where nose/mouth were suctioned and dried/stimulated. After approximately 1 minute, cord was clamped x2 and cut by FOB. Cord blood collected for typing. With fundal massage and cord traction, placenta delivered spontaneously and intact with 3 vessel centrally inserted cord. Bimanual massage performed and IV pitocin given per protocol with fundus then firm at u-2cm and hemostasis noted. Inspection of perineum and vagina revealed a 2nd degree midline perineal laceration which was repaired in routine fashion with 3-0 vicryl- total reapproximation and hemostasis achieved. Small trickle of blood, so sweep just within cervix/ROSHAN performed which retrieved a small amount of clot. Bimanual massage performed and both fundus and ROSHAN remained firm with hemostasis noted. All counts correct x2. Mom and infant were doing well when I left the room. Aggie Jennings MD Complications Complications: none [place] Data (Patel) Data order: 1 [place]'s gender: Male Identification band number: [id number]
[2025-04-12] MEDS: ONDANSETRON INJ 2 MG/ML INJ 2 ML 4 MG IVP (22:46)
[2025-04-13 04:00] VITALS: BP 106/79; PULSE 89; RESP 19; TEMP 36.7; O2SAT 97
[2025-04-13 04:36] VITALS: TEMP 36.7
[2025-04-13] MEDS: IBUPROFEN TAB 400 MG TABLET 800 MG PO (04:36)
[2025-04-13 05:49] LABS: Basophils # (Auto) 0.0 Thou/mm3 (0.0-0.2); Basophils % (Auto) 0 % (0-2.5); Eosinophils # (Auto) 0.1 Thou/mm3 (0.0-0.5); Eosinophils % (Auto) 0 % (0-10); Hematocrit 33.3 % (36.0-46.0); Hemoglobin 11.2 g/dL (12.0-16.0); Immature Granulocytes Auto 0.11 Thou/mm3 (0.00-0.00); Lymphocytes # (Auto) 1.2 Thou/mm3 (1.0-4.8); Lymphocytes % (Auto) 7 % (10-50); Mean Corpuscular HGB Conc 33.6 g/dl (31.0-37.0); Mean Corpuscular Hemoglobin 30.2 pg (25.0-35.0); Mean Corpuscular Volume 90 fL (80-100); Monocytes # (Auto) 0.9 Thou/mm3 (0.0-0.8); Monocytes % (Auto) 6 % (0-12); Neutrophils # (Auto) 13.3 Thou/mm3 (1.8-7.7); Neutrophils % (Auto) 85 % (37-80); Nucleated Red Blood Cell # 0.00 Thou/mm3 (0.00-0.00); Nucleated Red Blood Cell % 0 /100 WBC (0); Platelet Count 149 Thou/mm3 (140-440); RDW Standard Deviation 46.9 fL (36.4-46.3); Red Blood Count 3.71 Miln/mm3 (4.00-5.20); White Blood Count 15.5 Thou/mm3 (3.6-11.0)
[2025-04-13 07:46] VITALS: BP 105/71; PULSE 77; RESP 18; TEMP 36.4; O2SAT 97
[2025-04-13] MEDS: ACETAMINOPHEN 325 MG TABLET 650 MG PO ×2 (09:54→17:29)
[2025-04-13] MEDS: DOCUSATE SOD 100 MG CAPSULE PO ×2 (09:54→20:00)
[2025-04-13 11:45] VITALS: BP 108/72; PULSE 85; RESP 20; TEMP 36.6; O2SAT 97
--- NOTE | 2025-04-13 15:33 | PC.SS ---
CHANNEL MARKETING SPECIALIST conducted bedside contact with the patient to address nursing referral indicating patient possessed history of depression.? CHANNEL MARKETING SPECIALIST introduced self and role.? Patient confirmed past history of depression.? Per patient, past level of depression had not impaired daily functioning.? Patient was not prescribed medication to address depression.? Patient was participating with therapy but is no longer receiving.? Patient denies history of self-harm behaviors or psychiatric placement.? CHANNEL MARKETING SPECIALIST discussed post- depression with the patient.? Patient denies current presence of depressive symptoms.? Infant, Damion; is the patient?s first child.? Infant delivered naturally.? Patient interacting appropriate with .? OB services provided by Dr. Petersen.? Patient reports compliance with OB appointments.? Patient is aligned with [facility]IC.? Patient is not receiving SNAP or TANF.? Patient denies history of alcohol/drug use.? Patient denies episodes of domestic violence.? Patient has access to appropriate supplies and equipment.? FOB will provide transportation upon discharge.? Patient describes possessing support system consisting of FOB and extended family.? CHANNEL MARKETING SPECIALIST provided community resources to include [facility] and [facility].? No further intervention required at this time, social welfare clerk will be available to address any further concerns.? CHANNEL MARKETING SPECIALIST updated bedside nurse.?
[2025-04-13 16:33] VITALS: BP 118/75; PULSE 78; RESP 18; TEMP 36.9; O2SAT 98
[2025-04-13 20:00] VITALS: BP 106/72; PULSE 91; RESP 16; TEMP 37; O2SAT 98
--- NOTE | 2025-04-13 21:02 | PD.LDPPPRG ---
Subjective Subjective Interval history: The patient is a 19-year-old -0-0-1 status post vaginal delivery by Dr. Jennings around 2100 04/12/25. Tonight the patient is resting comfortably in bed working on breast-feeding. She denies heavy vaginal bleeding or pain. Patient is voiding normally and tolerating a general diet. Exam Vital Signs Temp Pulse Resp BP Pulse Ox O2 Del Method 98.5 F 78 18 118/75 98 Room Air 04/13/25 16:33 04/13/25 16:33 04/13/25 16:33 04/13/25 16:33 04/13/25 16:33 04/13/25 16:33 Narrative Exam Patient is alert and orient x 3 in no apparent distress. Fundus is firm at umbilicus extremities shows no significant edema or erythema Objective Labs 04/13/25 05:15 Labs: Laboratory Results - last 24 hr 04/13/25 05:15 WBC 15.5 H D RBC 3.71 L Hgb 11.2 L Hct 33.3 L MCV 90 MCH 30.2 MCHC 33.6 RDW Std Deviation 46.9 H Plt Count 149 D Neut % (Auto) 85 H Lymph % (Auto) 7 L Mellette % (Auto) 6 Eos % (Auto) 0 Baso % (Auto) 0 Neut # (Auto) 13.3 H Lymph # (Auto) 1.2 Mellette # (Auto) 0.9 H Eos # (Auto) 0.1 Baso # (Auto) 0.0 Immature Gran # (Auto) 0.11 H Absolute Nucleated RBC 0.00 Immature Gran % 1 H Nucleated RBC % 0 Assessment & Plan Problem List (1) care following vaginal delivery: Problem details: Patient is doing well . She will stay as she delivered late. She will probably go home tomorrow. All questions answered. Status: Acute (2) Morbid obesity with BMI of 40.0-44.9, adult: Problem details: Encouraged ambulation, moderate exercise and continued breast-feeding to decrease long-term health complications. Status: Acute Time Spent With Patient Time: Total time spent is greater than 50% in coordination of care (as documented) at patient's floor/unit and/or counseling patient:
[2025-04-14] MEDS: ACETAMINOPHEN 325 MG TABLET 650 MG PO (00:50)
[2025-04-14 03:55] VITALS: BP 106/72; PULSE 83; RESP 20; TEMP 36.6; O2SAT 97
[2025-04-14 07:45] VITALS: BP 104/72; PULSE 87; RESP 18; TEMP 36.8; O2SAT 98
--- NOTE | 2025-04-14 08:25 | PD.LDPPPRG ---
Subjective Subjective Interval history: Delivery type: Patient doing well this morning. No acute complaints. Ambulating, tolerating p.o., and voiding without difficulty. HTN/Pre-E screen negative: No CP, SOB, ALEJO, visual changes, RUQ pain. yes Lochia: diminishing Bowel: Flatus + / BM + Exam Vital Signs Temp Pulse Resp BP Pulse Ox O2 Del Method 97.9 F 83 20 106/72 97 Room Air 04/14/25 03:55 04/14/25 03:55 04/14/25 03:55 04/14/25 03:55 04/14/25 03:55 04/14/25 03:55 Constitutional Constitutional: no acute distress Routine HEENT Exam Head: Present normocephalic and atraumatic Eye: Present EOMI and PERRL ENT: Present mucous membranes moist Routine Neck Exam Neck: Present supple and trachea midline Routine Respiratory Exam Respiratory: Present chest non-tender, lungs clear, normal breath sounds and no resp distress Routine Cardiovascular Exam Cardiovascular: Present RRR Routine Abdominal Exam Abdominal: Present soft and normoactive bowel sounds Routine Extremities Exam Extremities: Present full ROM Routine Skin Exam Skin: Present intact, dry and warm Routine Neurological Exam Neurological: Present alert, oriented X3 and CN II-XII intact Routine Psychiatric Exam Psychiatric: Present normal affect and normal thought process Objective Labs 04/13/25 05:15 Assessment & Plan Problem List (1) care following vaginal delivery: Status: Acute Assessment and plan: PPD/POD#2 1. Continue routine care 2. Transition to PO meds. 3. Encourage to ambulate/ breast-feed 4. Anticipate discharge home today. (2) Morbid obesity with BMI of 40.0-44.9, adult: Status: Acute Time Spent With Patient Time: Total time spent is greater than 50% in coordination of care (as documented) at patient's floor/unit and/or counseling patient:
--- NOTE | 2025-04-14 08:26 | PD.LDDS ---
DS: Providers Provider Date of admission: 04/10/25 23:24 Primary care physician: Physician No Primary/Family Admitting Provider: Aggie Jennings MD Attending Provider on Admission: Melvin Beltran MD Consults: 04/12/25 21:40 Referral Routine Comment: Attending Provider on DC: Melvin Beltran MD Discharging Provider: Melvin Beltran MD DS: Diagnosis Discharge Diagnosis (1) Morbid obesity with BMI of 40.0-44.9, adult: Status: Acute (2) care following vaginal delivery: Status: Acute (3) Macrosomia affecting management of mother: Status: Acute Problem List Completed Was Problem List Reviewed/Reconciled?: Yes Summary/Hosp Course Brief History: Patient presents for scheduled induction of labor. Indication: macrosomia. No regular/painful ctx. No LOF. No vaginal bleeding. Normal movement. Peripartum Data Delivery Method: Normal Vaginal Delivery Episiotomy Description: None Time Spent with Patient Time attestation: Total time spent providing and/or coordinating discharge services: Exam Vital Signs Temp Pulse Resp BP Pulse Ox O2 Del Method 97.9 F 83 20 106/72 97 Room Air 04/14/25 03:55 04/14/25 03:55 04/14/25 03:55 04/14/25 03:55 04/14/25 03:55 04/14/25 03:55 Discharge Plan Plan Patient Disposition: HOME (Self Care) Patient condition on transfer: Stable Prescriptions/Referrals Prescriptions/Med Rec: New docusate sodium 100 mg Capsule 100 mg PO BID 10 Days Qty: 20 0RF ibuprofen 800 mg tablet 800 mg PO Q8H PRN (Reason: See Comments) 10 Days Qty: 20 0RF Continued triamcinolone acetonide 0.1 % cream 1 applic topical BID Qty: 15 0RF PNV no.95-ferrous fumarate-FA [] 28 mg iron- 800 mcg tablet PO Patient Comments: TAKE 1 TABLET BY MOUTH EVERY DAY Referrals: No Primary/Family,Physician [Primary Care Provider] Patient/Caregiver Discharge Instructions Discharge Activity: activity as tolerated and other Other Discharge Activity Instructions:: vaginal rest and no heavy lifting more than 10 pounds for 6 weeks Other Discharge Diet Instructions: regular Education Materials: After a Vaginal Print Language: Kyrgyz Activity Restrictions/Additional Instructions: follow up with BHARATHI Dia in 4 to 6 weeks for visit, call office for appointment Stand Alone Forms: Judi Award Info., Patient Portal Info Letter Discharge Order Discharge Orders: Discharge (Routine); Ordered 04/14/25 Ordered By: Melivn Beltran Planned Discharge Date 04/14/25 (3) Macrosomia affecting management of mother Qualifiers: Fetus number: single or unspecified fetus Trimester: third trimester Qualified Code(s): O36.63X0 - Maternal care for excessive growth, third trimester, not applicable or unspecified
[2025-04-14] MEDS: DOCUSATE SOD 100 MG CAPSULE PO (08:47)
[2025-04-14] MEDS: IBUPROFEN TAB 400 MG TABLET 800 MG PO (12:50)
== END 2025-04-14 13:55 | disposition home or self-care (01) | DRG 560 ==
LOC: S4SX 04-12 21:11 → S4NX 04-12 23:34
PROVIDERS: Admitting Provider Obstetrics & Gynecology; Visit Provider Obstetrics & Gynecology
DX: O36.63X0 Maternal care for excessive fetal growth, third trimester, not applicable or unspecified (principal); O99.214 Obesity complicating childbirth; E66.01 Morbid (severe) obesity due to excess calories; Z37.0 Single live birth; Z3A.39 39 weeks gestation of pregnancy; O70.1 Second degree perineal laceration during delivery; O76 Abnormality in fetal heart rate and rhythm complicating labor and delivery; O77.0 Labor and delivery complicated by meconium in amniotic fluid
CPT/HCPCS: 36415; 76805; 85025; 86780; 86850; 86900; 86901; J0166; J2405; J2590; J2795; J3010; J7120; A9270

== ENCOUNTER 2025-05-28 11:09 | Outpatient (AMB) | payer MEDICAID, SELFPAY ==
--- NOTE | 2025-05-28 11:25 | AMB.GYNCLNOT ---
Vital Signs 05/28/25 11:26 Weight 98.43 kg Weight Measurement Method Standing Scale BP 95/61 Blood Pressure Source Automatic Cuff Blood Pressure Location Left Upper Arm Position Sitting Respiration 18 Pulse 75 Pulse Source Monitor Temp 97.2 F Temp Source Oral Pulse Oximetry (%) 98 Oxygen Delivery Method Room Air Allergies/Home Meds Allergies & Medications Allergies No Known Allergies Allergy (Verified 05/28/25 11:27) Medication Reconciliation vit no.95-ferrous fumarate 28 mg-folic acid 800 mcg tablet () tab PO 03/14/25 [History Confirmed 05/28/25] triamcinolone acetonide 0.1 % topical cream 1 applic topical BID #15 grams 04/10/25 [Rx Confirmed 05/28/25] Intake Visit Data Collection New Patient or Established: Established Patient (seen at [facility] within 3 years) Seen by Clinical Staff ONLY (RN/MA): No Radiology Tech Required: No Do You Feel Safe at Home: Yes Authorities Contacted: N/A PCP or OBGYN visit in last 3 months: Yes Date of Last PCP or OBGYN visit: 04/14/25 Hx Now: No Are you currently on any form of Control: No Pain Present Currently: No Pain Scale Used: Corrales-Farley/Numerical Pain scale:: 0 Smoking Status Smoking Status: Never smoker INDUSTRIAL CLEANER: Past Medical History Past Medical History: No Hx Neurological Disorders, No Hx Cardiac Disorders, No Hx Cancer, Yes Hx Blood Disorders, Yes Hx Anemia, No Hx Gastrointestinal Disorders, No Hx Renal Disease, No Hx Diabetes Mellitus Type 1 and No Hx Diabetes Mellitus Type 2 Questionnaires PHQ-9 PHQ-2 Over the last 2 weeks, how often have you been bothered by any of the following problems? 1. Little interest or pleasure in doing things: not at all PHQ-9 8. Moving or speaking so slowly that other people could have noticed? - Or the opposite - being so fidgety or restless that you have been moving around a lot more than usual: not at all Total score: 0 Source: Developed by Drs. Jasiel Leon, Solange Wade, Jonnie Manzo and colleagues, with an educational laura from [employer]. Social History Living Situation History Lives With: Family Housing: House Tobacco History Smoking Status: Never smoker Second Hand Smoke Exposure: No Alcohol History Alcohol Intake: Never Domestic Abuse History Do You Feel Safe at Home: Yes
[2025-05-28 11:26] VITALS: BP 95/61; PULSE 75; RESP 18; TEMP 36.2; O2SAT 98
--- NOTE | 2025-05-28 11:34 | AMBOBPPN_ITS ---
Vital Signs 05/28/25 11:26 05/28/25 11:35 Weight 98.43 kg Weight Measurement Method Standing Scale BP 95/61 95/61 Blood Pressure Source Automatic Cuff Blood Pressure Location Left Upper Arm Position Sitting Respiration 18 18 Pulse 75 75 Pulse Source Monitor Temp 97.2 F 97.2 F Temp Source Oral Pulse Oximetry (%) 98 98 Oxygen Delivery Method Room Air Allergies/Home Meds Allergies & Medications Allergies No Known Allergies Allergy (Verified 05/28/25 11:34) Medication Reconciliation vit no.95-ferrous fumarate 28 mg-folic acid 800 mcg tablet () tab PO 03/14/25 [History Confirmed 05/28/25] triamcinolone acetonide 0.1 % topical cream 1 applic topical BID #15 grams 04/10/25 [Rx Confirmed 05/28/25] Intake Visit Data Collection New Patient or Established: Established Patient (seen at [facility] within 3 years) Reason for Visit:: Seen by Clinical Staff ONLY (RN/MA): No Picker Box Operator Required: No Do You Feel Safe at Home: Yes Authorities Contacted: N/A PCP or OBGYN visit in last 3 months: Yes ([id number]) Hx Now: No Are you currently on any form of Control: No Pain Present Currently: No Pain Scale Used: Corrales-Farley/Numerical Pain scale:: 0 Smoking Status Smoking Status: Never smoker Immunizations Flu Vaccine in the Last 12 Months: No Flu Vaccine Exclusion Criteria: Refused by Patient SHIPPING AND RECEIVING WEIGHER: Past Medical History Past Medical History: No Hx Neurological Disorders, No Hx Cardiac Disorders, No Hx Cancer, Yes Hx Blood Disorders, Yes Hx Anemia, No Hx Gastrointestinal Disorders, No Hx Renal Disease, No Hx Diabetes Mellitus Type 1 and No Hx Diabetes Mellitus Type 2 Questionnaires Covid-19 Vaccine Questionnaire Has patient been vacinated for Covid-19 Have you been vacinated for Covid-19: Yes Social History Living Situation History Lives With: Family Housing: House Tobacco History Smoking Status: Never smoker Second Hand Smoke Exposure: No Alcohol History Alcohol Intake: Never Domestic Abuse History Do You Feel Safe at Home: Yes EPDS - PP Depression Screening [place] Pospartum Depression Screen I have been able to laugh and see the funny side of things: (0) As much as I always could I have looked forward with enjoyment to things: (0) As much as I ever did I have blamed myself unnecessarily when things went wrong: (0) No, never I have been anxious or worried for no good reason: (0) No, not at all I have felt scared or panicky for no very good reason: (0) No, not at all Things have been getting on top of me: (0) No, I have been coping as well as ever I have been so unhappy that I have had difficulty sleeping: (0) No, not at all I have felt sad or miserable: (0) No, not at all I have been so unhappy that I have been crying: (0) No, never The thought of harming myself has occurred to me: (0) Never Total Score: EPDS Score: Referral is indicated for score of 9 or more, suicidal, or if provider believes patient is depressed regardless of score.: 0 EPDS completed yes Care OB Visit Log OB Flowsheet Initial Weight: Not Recorded Date -?-?-?-?-?--?-?-?-?-?-?-?- EGA Weight BP Alb Glu CTX Pres Fundal ht FHR Mov Dilation Station Effacement Hx Notes Visit Note 02/02/25 -?-?-?-?-?-?-?-?-?-?-?-?- 29w 3d 102.682 kg 119/77 absent unknown 31 147 active 19-year-old 1 para 0 for OBI. Happy about the . Patient is a transfer from [facility]. With records. History of obesity with the no other problems. Reports movement. Denies leaking. Denies bleeding. Patient will call [facility] for her last ultrasound was done 2 weeks ago. Referred to Dr. Castellano for dating sono and obesity. Discussed labor precautions. Increase fluids. Continue vitamins. Start on low-dose baby aspirin. Return in 2 weeks OB check 02/16/25 -?-?-?-?-?-?-?-?-?-?-?--?- 31w 3d 103.873 kg 109/73 absent unknown 31 145 active No OB complaints. Doing well. Fetus is active. Denies leaking, bleeding, contractions. Maternal- medicine ultrasound is pending. Discussed labor precautions. Increase fluids. Kick count twice a day. Return in 2 weeks OB check. I discussed Tdap. Patient declined for today 02/27/25 -?-?-?-?-?-?-?-?-?-?-?-?- 33w 0d 103.646 kg 118/78 absent cephalic 32 14 6 active Complains of increased mucus. Denies cough and runny nose. No temperature. Reports increased cramps. Fetus is active. No leaking or no bleeding. Comfort measures for URI. Discussed danger signs symptoms and ER precautions with parameters. Tylenol and abew-eot-wyfblvh meds for help. Vicks is okay. Kick count twice a day. Increase fluids. Return in 2 weeks OB check. Patient has maternal- medicine sono March 08 03/13/25 -?-?-?-?-?-?-?-?-?-?-?-?- 35w 0d 106.141 kg 118/71 absent cephalic 35 14 5 active Fetus active. No leaking, bleeding, increased cramps. Begin disability today. GBS today. Discussed MFM ultrasound results and dates. I discussed weight gain with patient and diet. Baby is growing in the 90th percentile. Kick count twice a day. Discussed labor precautions 03/21/25 -?-?-?-?-?-?-?-?-?-?-?-?- 36w 1d 107.218 kg 110/72 absent cephalic 36 14 5 active Increased back pain. You have to select the fetus active per patient. Denies leaking, bleeding, contractions disability start 03/13, discussed labor precautions. Discussed kick count. Discussed comfort measures for OP position. So that send return in a week OB check 03/29/25 -?-?-?-?-?-?-?-?-?-?-?-?- 37w 2d 108.465 kg 112/65 absent cephalic 37 14 5 active 0.5 -3 40 Increased pressure and pelvic pain. Reports good movement. Denies leaking, bleeding. Patient is worried about the baby being big and would like an induction IOL 04/11/25 IOL 04/11/25, scheduled natividad ction of labor for April 11, 2025 for maternal obesity and LGA in the 90th percentile. Discussed labor precautions and kick count. Discussed danger signs symptoms and ER precautions. Return in a week for OB check. Discussed diet and weight 04/04/25 -?-?-?-?-?-?-?-?-?-?-?-?- 38w 1d 108.635 kg 110/76 absent cephalic 38 14 5 active 1 -3 50 History of depression. Patient's mother is flying in from up [place] to be with her April 11 for induction. Patient has LGA baby 90th percentile. Reports good movement. Denies leaking, bleeding. Increased pressure. Induction of labor scheduled for April 11/2025. Reviewed induction with patient. Discussed labor precautions and kick count twice a day. Patient will continue to avoid sugary foods in her diet. Increase activity. Discussed kick count twice a day. Return on Wednesday for OB check 04/10/25 -?-?-?-?-?-?-?-?-?-?-?-?- 39w 0d 111.64 kg 106/71 occasional cephalic 40 145 active 1 -3 50 Reports good movement. Denies leaking or bleeding. Occasional contractions and pressure. Induction of lab or for April 11 scheduled. Discussed labor precautions and kick count twice a day with patient. Patient will call for bed availability tomorrow morning. Discussed danger signs symptoms and ER precautions ATUL Calculator Estimated Delivery Date Method Current WG Current Estimate 04/17/25 Ultrasound #1 45w 6d Other Estimates 04/05/25 LMP (Certain) 47w 4d 04/17/25 Ultrasound #2 45w 6d 04/17/25 Manual 45w 6d sono:03/08: efw 90%, final atul:04/17/25 Notes Visit Date: 03/21/25 Last Updated by: Isatu Dia CNM 03/14: GBS- Visit Date: 03/13/25 Last Updated by: Isatu Dia CNM 03/08/25: final ATUL: 04/17/25 Visit Date: 02/02/25 Last Updated by: Isatu Dia CNM 19 yo g1po. lmp 06/29/24. EDC 04/05/25. 1st ob sono: 09/06/24. IUP:8w1, CEDC: 04/17/25. A+,abs-, rpr;;nr, rub imm, hbsag-, hiv-, HC-, GC/CT-, UA-, UT-, 1 gr ftt: 86, A1c: 5.3, NIPT/AFP/Carrier- HPI Interval History: 20-year-old 1 para 1 for 6-week . Patient had a vaginal April 12. She was induced for macrosomia. She had a baby boy weighing 8 pounds 7 ounces. She is bottlefeeding. Happy. Denies depression. Patient reports that the first couple weeks she was little sad that the baby blues. She had problems with her and last. But they have since talked and she had set limits and she is doing fine. Denies control at this time. Father the baby is involved and supportive and helps. No complaints Delivery type: vaginal Was labor induced: yes Gestational age at delivery (weeks): 39.1 Delivery date: 04/12/25 Delivering provider: alberto Delivery complications: No Is patient infant: No Is patient sexually active: No Contraception planned: none Review of Systems Review of Systems ROS limited to current SHIPPING AND RECEIVING WEIGHER complaints: Yes Exam Narrative Physical exam: Normal heart rate and rhythm. Lungs clear no wheezes. Abdomen is soft nontender. Uterus well involuted. Perineum is intact no lacerations. No swelling. Small lochia. Negative Homans' sign. 2+ DTRs. No edema no swelling. Breasts are soft Office Procedures [facility] Clinic LOC & Office Proc's Nursing/Assessment Patient Status: Established Patient OB Clinic Nursing Assessment: Medication Reconciliation, Update PMH in EMR and Vital Signs OB Clinic Coordination of Care: Consent,records obtained, informed consent, Education Simp Pt/Fam, Lab and Imaging orders, Results/Orders obtained and Staff clarify orders Special Needs: Heart tones Established Patient Charge Established Patient Point Assignment: 110 Established Patient Point Charge: EP Level 3 (80-115) Assessment & Plan Diagnosis / Problem List (1) 6 weeks follow-up: Status: Acute Plan Follow-up for contraception. Patient declined. Discussed the importance of using condoms to help spaced pregnancies. Discussed diet and weight gain. Increase fluids. Return as needed and a Pap would be in 3 years Care Reviewed delivery summary and any complications: Yes Uterus involuted to: 3 below umb Perineal / incision healing noted: Yes Screened for depression: Yes Depression counseling provided: No Discussed family planning & contraception: Yes Contraception planned: none Counseling on safe resumption of sexual activity: Yes Counseling on gradual excercise: Yes Discussed and concerns (describe), provided support: No Referred to engineering documentation specialist: No Counseled on good nutrition, hydration, and self care: Yes Reviewed vaccine status: No care discussed; questions answered: feeding Follow up: routine/prn Additional counseling & anticipatory guidance provided: Discussed diet and exercise. Continue prenatals. Discussed spacing and condom use. Return in 3 years for Pap
[2025-05-28 11:35] VITALS: BP 95/61; PULSE 75; RESP 18; TEMP 36.2; O2SAT 98
== END 2025-05-28 12:02 | disposition home or self-care (01) ==
LOC: HODSOBC 11:09
PROVIDERS: Supervising Provider Advanced Practice Midwife; Visit Provider Advanced Practice Midwife
DX: Z39.2 Encounter for routine postpartum follow-up (principal)
CPT/HCPCS: 99213; G0463